=== PATIENT | male | born 1935 | race Caucasian/White ===

== ENCOUNTER 2021-08-10 12:30 | Inpatient (IN) ==
--- NOTE | 2021-08-10 12:55 | Emergency Department Note ---
Impression & Plan Pneumothorax, SOB (shortness of breath) ED Provider Note NAME: FER VILLARREAL AGE: 86 SEX: M : 1935 ARRIVES VIA: Walk-In INFORMANT: Patient, ED PROVIDER(S): Casper Bates DO CHIEF COMPLAINT: Shortness of breath HPI: The patient is an 86-year-old male who presented to the emergency department for an evaluation of shortness of breath. The patient's been noticing shortness of breath over the last few months. He has been seen by his primary care physician as well as his primary cardiology group. He had a pacemaker placed this week which was supposed to help with his symptoms. He states his symptoms are no better and he continues to have shortness of breath so he presented to the emergency department today for further evaluation. The patient states he is also had some chest pressure. He notices leg swelling but this is not new for him. He denies having any headaches or trauma. He has no back pain. He denies having any abdominal pain or vomiting. He states his symptoms are worsened with exertion and relieved somewhat with rest. ROS: See above HPI for pertinent positives & negatives. A total of 10 systems reviewed and were otherwise negative. PAST MEDICAL HISTORY: See Below PAST SURGICAL HISTORY: See Below FAMILY HISTORY: See Below SOCIAL HISTORY: See Below HOME MEDICATIONS: See Below ALLERGIES: See Below VITALS: See Below PHYSICAL EXAMINATION: GENERAL: Patient is awake alert in no acute distress patient is resting comfortably and showing no signs of anxiety EYES: The conjunctivae are clear. The pupils are round and reactive. EARS, NOSE, MOUTH AND THROAT: The nose is without any evidence of any deformity. Mucous membranes are moist. Tongue is midline. NECK: The neck is nontender and supple. RESPIRATORY: Diminished breath sounds are noted in the left lung field. There is mild tachypnea and conversational dyspnea. CARDIOVASCULAR: Tachycardic and irregular heart sounds were noted auscultation. No definite murmur could be heard to auscultation. GASTROINTESTINAL: The abdomen is soft. Abdomen is nontender. MUSCULOSKELETAL/EXTREMITIES: There is no evidence of gross deformity full range of motion is noted in the hips and shoulders. SKIN: Skin is warm and dry. Pedal edema was noted bilaterally. NEUROLOGIC: Patient is awake alert and oriented x3. MEDICAL DECISION MAKING: The patient is an 86-year-old male who presented to the emergency department for an evaluation of shortness of breath. The patient recently had a pacemaker placed earlier in the week. He started having worsening shortness of breath. He had diminished breath sounds in the left lung field. X-ray revealed pneumothorax. I discussed the patient's condition with the on-call general surgeon. A chest tube was placed. I also discussed his case with the on-call [facility] hospitalist. They have agreed to evaluate the patient in the emergency department for further inpatient management. The patient was feeling much better on subsequent reevaluation. X-ray was obtained after procedure and improvement of the pneumothorax. Triage Nursing notes reviewed. Prior medical records reviewed Vital Signs: reviewed and remarkable for elevated blood pressure. Differential diagnosis: Reactive airway disease, pneumonia, pneumothorax, COPD, CHF, infections, cardiac ischemia, pulmonary embolism, musculoskeletal, gastrointestinal, as well as other pathologies. ER treatment provided: See below Diagnostics interpreted by me: ECG: EKG was obtained in the emergency department. My interpretation is atrial fibrillation at 125 bpm. Paced beats were noted. Some pacer spikes fell onto the QRS complex. This was compared to a tracing from August 07, 2021. The pacer spikes appear to have changed otherwise no other QRS changes were noted. Cardiac Monitoring: An order was placed for continuous cardiac monitoring. The monitor shows a rate of 99 bpm with atrial fibrillation with paced beats were noted. Laboratory studies: As stated above and show below. Imaging studies: See below Consultation(s): I discussed this case with Dr. Espinal who is on-call for general surgery. I discussed this case with Dr. [facility] Past Med/Surg History Medical History Atrial fibrillation reason for upcoming ICD implant. CAD (coronary artery disease) s/p PCIs to RCA x 2 and LAD x 3, "CABG in 2003 [facility]GUE[facility], SVG-D2, SVG-Y [facility] Congestive heart failure EF 25-30% per [facility] records Gout Hyperlipidemia Hypertension Kidney stones Mitral regurgitation moderate Myocardial Infarction On anticoagulant therapy Osteoarthritis Tricuspid regurgitation moderate Surgical History History of arthroscopy Left knee arthroscopy History of cardiac cath x3 (last done about ~2001) [place], [place] History of cataract surgery bilateral History of colonoscopy History of coronary artery bypass graft x2 or x3 vessels at [facility] (~2014) History of heart artery stent total of x3 or 4 stents. History of herniorrhaphy inguinal hernia repair History of lithotripsy History of removal of calculus of renal pelvis through percutaneous nephrostomy Family History Other No family history of adverse response to anesthesia No significant family history Social History Smoking Status: Never smoker Second Hand Exposure: No; Hx Alcohol Use: Yes Alcohol type: wine Hx Substance Use: No Preferred Language: Latvian Communication Ability: Effective Clinical Assoc Required: No Beliefs That Will Affect Care: None Current Living Situation: Spouse Current Living Situation Comment: LIVES WITH current occupational status: retired Other Information That Helps Us Care for You: No Feels Safe at Home: Yes Safety Concerns: Feels Safe At This Time Assistive Devices: Denture - Upper, Denture - Lower and Glasses Allergies Allergies Allergy/AdvReac Type Severity Reaction Status Date / Time No Known Allergies Allergy Verified 08/05/21 13:39 Home Meds Home Medications Medication Instructions Recorded Confirmed acetylcarnitine 500 mg capsule 1,000 mg PO QPM 08/05/21 08/10/21 allopurinol 100 mg tablet 100 mg PO QAM 08/05/21 08/10/21 atorvastatin 80 mg tablet 80 mg PO QAM 08/05/21 08/10/21 eplerenone 25 mg tablet (Inspra) 25 mg PO QAM 08/05/21 08/10/21 ezetimibe 10 mg tablet 10 mg PO QAM 08/05/21 08/10/21 furosemide 40 mg tablet (Lasix) 20 mg PO QPM 08/05/21 08/10/21 furosemide 40 mg tablet (Lasix) 40 mg PO QAM 08/05/21 08/10/21 sacubitril 97 mg-valsartan 103 mg 1 tab PO BID 08/05/21 08/10/21 tablet (Entresto) vitamins A,C,C-btag-dkyorg 14,320 1 cap PO QAM 08/05/21 08/10/21 unit-226 mg-200 unit capsule (PreserVision AREDS) warfarin 5 mg tablet 5 - 7.5 mg PO UD 08/05/21 08/10/21 digoxin 125 mcg (0.125 mg) tablet 62.5 mcg PO QPM 08/10/21 08/10/21 Previous Rx's Medication Instructions Recorded metoprolol succinate 50 mg 100 mg PO BID #0 tab 08/07/21 tablet,extended release 24 hr (Toprol XL) Results & Data (ED) Vital Signs Vital Signs - 24 hr 08/10/21 12:34 08/10/21 12:38 08/10/21 12:48 Temperature 36.6 C Temperature Source Temporal Artery Scan Pulse Rate 115 H 105 H Pulse Rate [Apical] 113 H Pulse Rate from SpO2 Sensor Pulse Rhythm [Apical] Regular Pulse Strength [Apical] Normal Respiratory Rate 20 16 14 Respiratory Effort / Characteristics Non-Labored Spontaneous Non-Labored Respiratory Depth Normal Normal Respiratory Pattern Regular Regular Blood Pressure Blood Pressure [Right Arm] 112/95 Blood Pressure Mean Blood Pressure Mean [Right Arm] 100 Blood Pressure Position Sitting Pulse Oximetry 94 94 Oxygen Delivery Method Room Air Room Air Oxygen Flow Rate Sepsis Recent Fever Within 48 Hours No Sepsis New/Unexplained Change in Mental Status No Sepsis Action Taken by Nursing No Action Required Oxygen Flow Rate - Titration Pulse Oximetry Post Tiitration 08/10/21 12:50 08/10/21 13:00 08/10/21 13:10 Temperature Temperature Source Pulse Rate 106 H 109 H 105 H Pulse Rate [Apical] Pulse Rate from SpO2 Sensor 93 H 104 H 93 H Pulse Rhythm [Apical] Pulse Strength [Apical] Respiratory Rate 22 19 18 Respiratory Effort / Characteristics Respiratory Depth Respiratory Pattern Blood Pressure 136/99 Blood Pressure [Right Arm] Blood Pressure Mean 111 Blood Pressure Mean [Right Arm] Blood Pressure Position Pulse Oximetry 93 94 94 Oxygen Delivery Method Oxygen Flow Rate Sepsis Recent Fever Within 48 Hours Sepsis New/Unexplained Change in Mental Status Sepsis Action Taken by Nursing Oxygen Flow Rate - Titration Pulse Oximetry Post Tiitration 08/10/21 13:20 08/10/21 13:30 08/10/21 13:40 Temperature Temperature Source Pulse Rate 108 H 102 H 114 H Pulse Rate [Apical] Pulse Rate from SpO2 Sensor 102 H 97 H 94 H Pulse Rhythm [Apical] Pulse Strength [Apical] Respiratory Rate 20 Respiratory Effort / Characteristics Respiratory Depth Respiratory Pattern Blood Pressure Blood Pressure [Right Arm] Blood Pressure Mean Blood Pressure Mean [Right Arm] Blood Pressure Position Pulse Oximetry 94 94 98 Oxygen Delivery Method Oxygen Flow Rate Sepsis Recent Fever Within 48 Hours Sepsis New/Unexplained Change in Mental Status Sepsis Action Taken by Nursing Oxygen Flow Rate - Titration Pulse Oximetry Post Tiitration 08/10/21 13:50 08/10/21 14:00 08/10/21 14:10 Temperature Temperature Source Pulse Rate 108 H 112 H 106 H Pulse Rate [Apical] Pulse Rate from SpO2 Sensor 105 H 100 H 98 H Pulse Rhythm [Apical] Pulse Strength [Apical] Respiratory Rate 16 21 20 Respiratory Effort / Characteristics Respiratory Depth Respiratory Pattern Blood Pressure 133/88 Blood Pressure [Right Arm] Blood Pressure Mean 103 Blood Pressure Mean [Right Arm] Blood Pressure Position Pulse Oximetry 98 98 98 Oxygen Delivery Method Room Air Oxymask Oxygen Flow Rate 0 Sepsis Recent Fever Within 48 Hours Sepsis New/Unexplained Change in Mental Status Sepsis Action Taken by Nursing Oxygen Flow Rate - Titration 4 Pulse Oximetry Post Tiitration 98 08/10/21 14:20 08/10/21 14:30 08/10/21 14:40 Temperature Temperature Source Pulse Rate 107 H 94 H 92 H Pulse Rate [Apical] Pulse Rate from SpO2 Sensor 102 H 90 90 Pulse Rhythm [Apical] Pulse Strength [Apical] Respiratory Rate 22 24 23 Respiratory Effort / Characteristics Respiratory Depth Respiratory Pattern Blood Pressure Blood Pressure [Right Arm] Blood Pressure Mean Blood Pressure Mean [Right Arm] Blood Pressure Position Pulse Oximetry 98 98 98 Oxygen Delivery Method Oxygen Flow Rate Sepsis Recent Fever Within 48 Hours Sepsis New/Unexplained Change in Mental Status Sepsis Action Taken by Nursing Oxygen Flow Rate - Titration Pulse Oximetry Post Tiitration 08/10/21 14:50 08/10/21 15:00 08/10/21 15:10 Temperature Temperature Source Pulse Rate 92 H 87 82 Pulse Rate [Apical] Pulse Rate from SpO2 Sensor 94 H 86 82 Pulse Rhythm [Apical] Pulse Strength [Apical] Respiratory Rate 30 H 26 H 18 Respiratory Effort / Characteristics Respiratory Depth Respiratory Pattern Blood Pressure 144/99 H Blood Pressure [Right Arm] Blood Pressure Mean 114 Blood Pressure Mean [Right Arm] Blood Pressure Position Pulse Oximetry 98 91 99 Oxygen Delivery Method Oxygen Flow Rate Sepsis Recent Fever Within 48 Hours Sepsis New/Unexplained Change in Mental Status Sepsis Action Taken by Nursing Oxygen Flow Rate - Titration Pulse Oximetry Post Tiitration 08/10/21 15:20 08/10/21 15:30 08/10/21 15:40 Temperature Temperature Source Pulse Rate 97 H 88 96 H Pulse Rate [Apical] Pulse Rate from SpO2 Sensor 93 H 90 96 H Pulse Rhythm [Apical] Pulse Strength [Apical] Respiratory Rate 21 18 18 Respiratory Effort / Characteristics Respiratory Depth Respiratory Pattern Blood Pressure Blood Pressure [Right Arm] Blood Pressure Mean Blood Pressure Mean [Right Arm] Blood Pressure Position Pulse Oximetry 99 99 99 Oxygen Delivery Method Oxygen Flow Rate Sepsis Recent Fever Within 48 Hours Sepsis New/Unexplained Change in Mental Status Sepsis Action Taken by Nursing Oxygen Flow Rate - Titration Pulse Oximetry Post Tiitration Home Medications Current Medication List: was personally reviewed by me Laboratory Data Attestation: I reviewed the patient's lab results. Result diagrams: 08/10/21 12:50 08/10/21 12:50 Lab Results 08/10/21 08/10/21 08/10/21 Range/Units 12:50 12:50 12:50 WBC 8.80 (4.8-10.8) K/uL RBC 4.58 L (4.7-6.1) M/uL Hgb 14.5 (14.0-18.0) g/dL Hct 45.4 (42-52) % MCV 99.1 (80-100) fL MCH 31.7 (25-34) pg MCHC 31.9 L (32-36) g/dL RDW Std Deviation 56.2 H (36.4-46.3) fL RDW Coeff of Everardo 15.4 H (11.5-14.5) % Plt Count 197 (130-400) K/uL MPV 10.2 (7.4-10.4) fL Immature Gran % (Auto) 0.1 % Neut % (Auto) 72.6 % Lymph % (Auto) 15.5 % [place] % (Auto) 9.7 % Eos % (Auto) 1.6 % Baso % (Auto) 0.5 % Neut # (Auto) 6.40 (1.4-6.5) K/uL Lymph # (Auto) 1.36 (1.2-3.4) K/uL [place] # (Auto) 0.85 H (0.11-0.59) K/uL Eos # (Auto) 0.14 (0-0.5) K/uL Baso # (Auto) 0.04 (0-0.2) K/uL Immature Gran # (Auto) 0.01 (0.00-0.02) K/uL PT 18.6 H (9.0-12.0) Seconds INR 1.8 H (0.9-1.1) APTT 33.8 H (21.0-31.0) Seconds PTT Ratio 1.2 VBG pH (7.36-7.41) VBG pCO2 (38-50) mmHg VBG pO2 mmHg VBG HCO3 mmol/L VBG O2 Saturation % VBG Base Excess mEq/L Barometric Pressure mm/Hg Sodium (136-145) mmol/L Potassium (3.5-5.1) mmol/L Chloride (98-107) mmol/L Carbon Dioxide (21-32) mmol/L Anion Gap (3-11) BUN (6-23) mg/dl Creatinine (0.6-1.4) mg/dl Est Cr Clr Drug Dosing ml/min Est GFR ( Amer) ml/min Est GFR (Non-Af Amer) ml/min BUN/Creatinine Ratio (10-20) Glucose (70-99(Fasting)) mg/dl Calcium (8.5-10.1) mg/dl Magnesium (1.7-2.4) mg/dl Total Bilirubin (0.2-1.0) mg/dl AST (13-39) U/L ALT (7-52) U/L Alkaline Phosphatase (34-104) U/L Troponin I High Sens 16.9 (0-20) pg/ml B-Natriuretic Peptide (0-100) pg/ml Total Protein (6.0-8.3) gm/dl Albumin (3.4-5.0) gm/dl Globulin (2.5-4.0) gm/dl Albumin/Globulin Ratio (0.9-2) SARS-CoV-2, RNA, NAAT (NEGATIVE) 08/10/21 08/10/21 08/10/21 Range/Units 12:50 12:50 13:10 WBC (4.8-10.8) K/uL RBC (4.7-6.1) M/uL Hgb (14.0-18.0) g/dL Hct (42-52) % MCV (80-100) fL MCH (25-34) pg MCHC (32-36) g/dL RDW Std Deviation (36.4-46.3) fL RDW Coeff of Everardo (11.5-14.5) % Plt Count (130-400) K/uL MPV (7.4-10.4) fL Immature Gran % (Auto) % Neut % (Auto) % Lymph % (Auto) % [place] % (Auto) % Eos % (Auto) % Baso % (Auto) % Neut # (Auto) (1.4-6.5) K/uL Lymph # (Auto) (1.2-3.4) K/uL [place] # (Auto) (0.11-0.59) K/uL Eos # (Auto) (0-0.5) K/uL Baso # (Auto) (0-0.2) K/uL Immature Gran # (Auto) (0.00-0.02) K/uL PT (9.0-12.0) Seconds INR (0.9-1.1) APTT (21.0-31.0) Seconds PTT Ratio VBG pH 7.41 (7.36-7.41) VBG pCO2 42 (38-50) mmHg VBG pO2 53 mmHg VBG HCO3 27 mmol/L VBG O2 Saturation 86.5 % VBG Base Excess 1.6 mEq/L Barometric Pressure 734.8 mm/Hg Sodium 139 (136-145) mmol/L Potassium 4.0 (3.5-5.1) mmol/L Chloride 105 (98-107) mmol/L Carbon Dioxide 26 (21-32) mmol/L Anion Gap 8 (3-11) BUN 24 H (6-23) mg/dl Creatinine 1.02 (0.6-1.4) mg/dl Est Cr Clr Drug Dosing 66.5 ml/min Est GFR ( Amer) 77.3 ml/min Est GFR (Non-Af Amer) 66.7 ml/min BUN/Creatinine Ratio 23.5 H (10-20) Glucose 124 H (70-99(Fasting)) mg/dl Calcium 9.2 (8.5-10.1) mg/dl Magnesium 1.8 (1.7-2.4) mg/dl Total Bilirubin 1.2 H (0.2-1.0) mg/dl AST 22 (13-39) U/L ALT 19 (7-52) U/L Alkaline Phosphatase 52 (34-104) U/L Troponin I High Sens (0-20) pg/ml B-Natriuretic Peptide 583 H (0-100) pg/ml Total Protein 6.9 (6.0-8.3) gm/dl Albumin 4.4 (3.4-5.0) gm/dl Globulin 2.5 (2.5-4.0) gm/dl Albumin/Globulin Ratio 1.8 (0.9-2) SARS-CoV-2, RNA, NAAT (NEGATIVE) 08/10/21 Range/Units 14:00 WBC (4.8-10.8) K/uL RBC (4.7-6.1) M/uL Hgb (14.0-18.0) g/dL Hct (42-52) % MCV (80-100) fL MCH (25-34) pg MCHC (32-36) g/dL RDW Std Deviation (36.4-46.3) fL RDW Coeff of Everardo (11.5-14.5) % Plt Count (130-400) K/uL MPV (7.4-10.4) fL Immature Gran % (Auto) % Neut % (Auto) % Lymph % (Auto) % [place] % (Auto) % Eos % (Auto) % Baso % (Auto) % Neut # (Auto) (1.4-6.5) K/uL Lymph # (Auto) (1.2-3.4) K/uL [place] # (Auto) (0.11-0.59) K/uL Eos # (Auto) (0-0.5) K/uL Baso # (Auto) (0-0.2) K/uL Immature Gran # (Auto) (0.00-0.02) K/uL PT (9.0-12.0) Seconds INR (0.9-1.1) APTT (21.0-31.0) Seconds PTT Ratio VBG pH (7.36-7.41) VBG pCO2 (38-50) mmHg VBG pO2 mmHg VBG HCO3 mmol/L VBG O2 Saturation % VBG Base Excess mEq/L Barometric Pressure mm/Hg Sodium (136-145) mmol/L Potassium (3.5-5.1) mmol/L Chloride (98-107) mmol/L Carbon Dioxide (21-32) mmol/L Anion Gap (3-11) BUN (6-23) mg/dl Creatinine (0.6-1.4) mg/dl Est Cr Clr Drug Dosing ml/min Est GFR ( Amer) ml/min Est GFR (Non-Af Amer) ml/min BUN/Creatinine Ratio (10-20) Glucose (70-99(Fasting)) mg/dl Calcium (8.5-10.1) mg/dl Magnesium (1.7-2.4) mg/dl Total Bilirubin (0.2-1.0) mg/dl AST (13-39) U/L ALT (7-52) U/L Alkaline Phosphatase (34-104) U/L Troponin I High Sens (0-20) pg/ml B-Natriuretic Peptide (0-100) pg/ml Total Protein (6.0-8.3) gm/dl Albumin (3.4-5.0) gm/dl Globulin (2.5-4.0) gm/dl Albumin/Globulin Ratio (0.9-2) SARS-CoV-2, RNA, NAAT NEGATIVE (NEGATIVE) Administered Medications Furosemide (Furosemide 20 Mg Tab) 20 mg PO DAILY@1700 MINO Stop: 09/09/21 16:59 Last Admin: 08/10/21 18:11 Dose: 20 mg Documented by: [id number] Discontinued Medications Lidocaine/Epinephrine (Lido/Epinephrine/Sod Bicarb 20 Ml Vial) Confirm Administered Dose 20 ml .ROUTE .[employer] ONE Stop: 08/10/21 14:21 Last Admin: 08/10/21 14:53 Dose: 20 ml Documented by: [id number] Imaging Data Radiologist's Impression: Chest X-Ray 08/10/21 12:42 XR chest 1V portable HISTORY: 86 years-old Male Dyspnea acute shortness of breath COMPARISON: 08/07/2021 TECHNIQUE: AP view of the chest FINDINGS: Cardiomegaly with prior median sternotomy. Left subclavian pacer/AICD. There is a large left-sided pneumothorax. No large pleural effusion, airspace consolidation or overt pulmonary edema. Possible slight rightward deviation of the mediastinal structures. Subcutaneous emphysema within the left supraclavicular tissues. The bones appear grossly intact. IMPRESSION: Large left-sided pneumothorax with possible developing tension component. Chest tube placement recommended. ACT 112: Negative or not required by law. The above report was generated using voice recognition software. It may contain grammatical, syntax or spelling errors. Electronically signed by: Andrei Rodríguez M.D. 08/10/2021 1:15 PM Chest X-Ray 08/10/21 14:46 XR chest 1V portable HISTORY: 86 years-old Male post chest tube left-sided pneumothorax COMPARISON: Chest radiograph of same day at 08/10/2021 TECHNIQUE: AP view of the chest FINDINGS: Status post placement of a left-sided chest tube with distal tip projected superiorly projecting over the aortic arch. Left subclavian pacer/AICD. Cardiomegaly with prior median sternotomy and CABG. Bones appear grossly intact. There is reexpansion of the left lung with small residual hydropneumothorax. Left apical pneumothorax component is noted with pleural separation of 2 cm. Mild left basilar opacities. Mild asymmetric interstitial coarsening of the left lung. Subcutaneous emphysema of the left supraclavicular tissues and left lateral chest wall. IMPRESSION: 1. Status post placement of a left-sided chest tube. There is reexpansion of the left lung with small residual hydropneumothorax. 2. Mild interstitial opacities throughout the left lung may represent asymmetric pulmonary edema. 3. Subcutaneous emphysema of the left supraclavicular tissues and left chest wall. ACT 112: Negative or not required by law. The above report was generated using voice recognition software. It may contain grammatical, syntax or spelling errors. Electronically signed by: Andrei Rodríguez M.D. 08/10/2021 3:08 PM Discharge Plan Visit Data Chief Complaint: Shortness of Breath/Dyspnea Stated Complaint: GOT PACEMAKER WED, SOB AFTER SURGERY ED Provider: Casper Bates Discharge Problem: Pneumothorax, SOB (shortness of breath) Patient Disposition: Admitted As Inpatient Discharge Instructions Interventions: ED Discharge Assessment Last Done: 08/10/21 16:37 Discharge Problem: Pneumothorax Qualifiers: Pneumothorax type: unspecified pneumothorax Qualified Code(s): J93.9 - Pn eumothorax, unspecified
[2021-08-10 13:00] LABS: Basophils # (auto) 0.04 K/uL (0-0.2); Basophils % (auto) 0.5 %; Eosinophils # (auto) 0.14 K/uL (0-0.5); Eosinophils % (auto) 1.6 %; Hematocrit (blood only) 45.4 % (42-52); Hemoglobin 14.5 g/dL (14.0-18.0); Immature Granulocytes # (auto) 0.01 K/uL (0.00-0.02); Immature Granulocytes % (auto) 0.1 %; Lymphocytes # (auto) 1.36 K/uL (1.2-3.4); Lymphocytes % (auto) 15.5 %; Mean Corpuscular Hemoglobin 31.7 pg (25-34); Mean Corpuscular Hgb Conc 31.9 g/dL (32-36); Mean Corpuscular Volume 99.1 fL (80-100); Mean Platelet Volume 10.2 fL (7.4-10.4); Monocytes # (auto) 0.85 K/uL (0.11-0.59); Monocytes % (auto) 9.7 %; Neutrophils % (auto) 72.6 %; Platelet Count 197 K/uL (130-400); RDW Coefficient of Variation 15.4 % (11.5-14.5); RDW Standard Deviation 56.2 fL (36.4-46.3); Red Blood Count 4.58 M/uL (4.7-6.1)
[2021-08-10 13:13] LABS: INR 1.8 (0.9-1.1); Partial Thromboplastin Ratio 1.2; Partial Thromboplastin Time 33.8 Seconds (21.0-31.0); Prothrombin Time 18.6 Seconds (9.0-12.0)
--- NOTE | 2021-08-10 13:17 | XRay Report ---
XR chest 1V portable HISTORY: 86 years-old Male Dyspnea acute shortness of breath COMPARISON: 08/07/2021 TECHNIQUE: AP view of the chest FINDINGS: Cardiomegaly with prior median sternotomy. Left subclavian pacer/AICD. There is a large left-sided pn eumothorax. No large pleural effusion, airspace consolidation or overt pulmonary edema. Possible slig ht rightward deviation of the mediastinal structures. Subcutaneous emphysema within the left supracla vicular tissues. The bones appear grossly intact. IMPRESSION: Large left-sided pneumothorax with possible developing tension component. Chest tube plac ement recommended. ACT 112: Negative or not required by law. The above report was generated using voice recognition software. It may contain grammatical, syntax o r spelling errors. Electronically signed by: Andrei Rodríguez M.D. 08/10/2021 1:15 PM
[2021-08-10 13:26] LABS: Base Excess VBG 1.6 mEq/L; Oxygen Saturation VBG 86.5 %; pH VBG 7.41 (7.36-7.41)
[2021-08-10 13:28] LABS: Albumin Globulin Ratio 1.8 (0.9-2); Albumin Level 4.4 gm/dl (3.4-5.0); BUN Creatinine Ratio 23.5 (10-20); Bilirubin,Total 1.2 mg/dl (0.2-1.0); Calcium 9.2 mg/dl (8.5-10.1); Creatinine Clr Calc Pharmacy 66.5 ml/min; Est GFR (African American) 77.3 ml/min; Est GFR (Non-African American) 66.7 ml/min; Globulin 2.5 gm/dl (2.5-4.0); Magnesium 1.8 mg/dl (1.7-2.4); Total Protein 6.9 gm/dl (6.0-8.3)
[2021-08-10] MEDS ORDERED: LIDO/EPINEPHRINE/SOD BICARB 20 ML VIAL ONE (14:20)
--- NOTE | 2021-08-10 15:01 | Surgery Consultation ---
Date of Consultation August 10, 2021 Assessment & Plan (1) Pneumothorax, left: Patient's chest x-ray images were reviewed by me, he has a large left pneumothorax Left chest tube placed at the bedside, awaiting post insertion chest x-ray Due to the urgency of the situation no written consent was obtained but the patient did verbally agree to the procedure We will leave the chest tube to wall suction for 48 hours Will repeat chest x-ray tomorrow morning History of Present Illness Reason for Consultation: Left-sided pneumothorax History of Present Illness This is an 86-year-old male who came to the emergency department earlier today for worsening shortness of breath. He had a pacemaker placed by cardiology 3 days ago and has developed worsening dyspnea since that time. Chest x-ray revealed a large left-sided pneumothorax and I was consulted for chest tube placement. The patient denies any chest pain, previous chest tube placement or thoracic surgeries, any primary lung issues. He does take Coumadin for history of atrial fibrillation. He states that the current moment he is a little short of breath but otherwise feels okay. Allergies Allergy/AdvReac Type Severity Reaction Status Date / Time No Known Allergies Allergy Verified 08/05/21 13:39 Home Medications Medication Instructions Recorded Confirmed Type aspirin 81 mg tablet,delayed 81 mg PO QPM 03/04/18 08/05/21 History release acetylcarnitine 500 mg capsule 1,000 mg PO QPM 08/05/21 08/05/21 History allopurinol 100 mg tablet 100 mg PO QAM 08/05/21 08/05/21 History atorvastatin 80 mg tablet 80 mg PO QAM 08/05/21 08/05/21 History eplerenone 25 mg tablet (Inspra) 25 mg PO QAM 08/05/21 08/05/21 History ezetimibe 10 mg tablet 10 mg PO QAM 08/05/21 08/05/21 History furosemide 40 mg tablet (Lasix) 20 mg PO QPM 08/05/21 08/05/21 History furosemide 40 mg tablet (Lasix) 40 mg PO QAM 08/05/21 08/05/21 History sacubitril 97 mg-valsartan 103 mg 1 tab PO BID 08/05/21 08/05/21 History tablet (Entresto) vitamins A,C,Z-eamg-basnqt 14,320 1 cap PO QAM 08/05/21 08/05/21 History unit-226 mg-200 unit capsule (PreserVision AREDS) warfarin 5 mg tablet 5 - 7.5 mg PO UD 08/05/21 08/05/21 History metoprolol succinate 50 mg 100 mg PO BID #0 tab 08/07/21 08/05/21 Rx tablet,extended release 24 hr (Toprol XL) Patient History Medical History Atrial fibrillation reason for upcoming ICD implant. CAD (coronary artery disease) s/p PCIs to RCA x 2 and LAD x 3, "CABG in 2003 RODRÍGUEZ-LAD, SVG-D2, SVG-Y graft to anterior branch occluded by caht in 06/2019" [facility] Congestive heart failure EF 25-30% per [facility] records Gout Hyperlipidemia Hypertension Kidney stones Mitral regurgitation moderate Myocardial Infarction On anticoagulant therapy Osteoarthritis Tricuspid regurgitation moderate Surgical History History of arthroscopy Left knee arthroscopy History of cardiac cath x3 (last done about ~2001) [place], [place] History of cataract surgery bilateral History of colonoscopy History of coronary artery bypass graft x2 or x3 vessels at [facility] (~2014) History of heart artery stent total of x3 or 4 stents. History of herniorrhaphy inguinal hernia repair History of lithotripsy History of removal of calculus of renal pelvis through percutaneous nephrostomy Family History Other No family history of adverse response to anesthesia No significant family history Social History Smoking Status: Never smoker Second Hand Exposure: No; Hx Alcohol Use: Yes Alcohol type: wine Hx Substance Use: No Preferred Language: Kyrgyz Communication Ability: Effective Cloth Measurer Machine Required: No Beliefs That Will Affect Care: None Current Living Situation: Alone current occupational status: retired Feels Safe at Home: Yes Assistive Devices: Denture - Upper, Denture - Lower and Glasses Review of Systems Constitutional: no fever and no chills Eyes: no blind spots and no worsening vision Ear, Nose, Mouth, Throat: no ear pain and no hearing loss Respiratory: + dyspnea and + dyspnea on exertion; no cough Cardiovascular: no chest pain Gastrointestinal: no abdominal pain Genitourinary: no dysuria Musculoskeletal: no back pain and no neck pain Integumentary: no rash and no skin ulcer Neurologic: no gait abnormality and no headache(s) Psychiatric: no behavioral changes and no depression Hematologic / Lymphatic: + easy bleeding; no easy bruising Positive on warfarin for atrial fibrillation Physical Exam Constitutional: WD/WN, vitals as above Eyes: PERRL, conjunctivae normal, anicteric sclerae ENMT: external ear and nose normal, oropharynx normal Neck: trachea midline, no thyromegaly Respiratory: + respiratory distress and + labored breathing Decreased breath sounds in the left Cardiovascular: Rate/Rhythm: + irregularly irregular Chest (Breasts): Additional Comments: Pacemaker incision with Dermabond and surrounding ecchymosis, no signs of infection or drainage Mild chest wall ecchymosis on the left Gastrointestinal (Abdomen): normal bowel sounds, soft, nontender, no hepatosplenomegaly Musculoskeletal: no cyanosis or clubbing, extremities motor strength 5/5 Skin: no rashes, warm and dry Neurologic: PERRL, EOMI, accommodation nl, no face palsy, no dysarthria Psychiatric: A+Ox3, euthymic affect Results & Data ([facility]) Vital Signs (Past 12 Hours) Vital Signs Temp Pulse Pulse Resp BP BP Pulse Ox 08/10/21 14:50 92 H 30 H 98 08/10/21 14:40 92 H 23 98 08/10/21 14:30 94 H 24 98 08/10/21 14:20 107 H 22 98 08/10/21 14:10 106 H 20 98 08/10/21 14:00 112 H 21 133/88 98 08/10/21 13:50 108 H 16 98 08/10/21 13:40 114 H 98 08/10/21 13:30 102 H 94 08/10/21 13:20 108 H 20 94 08/10/21 13:10 105 H 18 94 08/10/21 13:00 109 H 19 136/99 94 08/10/21 12:50 106 H 22 93 08/10/21 12:48 105 H 14 08/10/21 12:38 113 H 16 112/95 94 08/10/21 12:34 36.6 C 115 H 20 94 Diagnostic Findings XR chest 1V portable HISTORY: 86 years-old Male Dyspnea acute shortness of breath COMPARISON: 08/07/2021 TECHNIQUE: AP view of the chest FINDINGS: Cardiomegaly with prior median sternotomy. Left subclavian pacer/AICD. There is a large left-sided pneumothorax. No large pleural effusion, airspace consolidation or overt pulmonary edema. Possible slight rightward deviation of the mediastinal structures. Subcutaneous emphysema within the left supraclavicular tissues. The bones appear grossly intact. IMPRESSION: Large left-sided pneumothorax with possible developing tension component. Chest tube placement recommended. PG Care Time/CCT Total # of Minutes Spent Total Time Spent with Patient: Total time spent is greater than 50% in coordination of care (as documented) at patient's floor/unit and/or counseling patient: Coding Level of Care Code 68822 Office/OBS Consult Lvl 5 Diagnoses Pneumothorax, left J93.9
--- NOTE | 2021-08-10 15:07 | Operative Report ---
PG Post Operative Report Pre & Post Diagnosis Left-sided pneumothorax I identified the patient and participated in the time-out.: Yes Procedure Left tube thoracostomy Surgeon Elvis Espinal, DO Braille Typist None Estimated Blood Loss 5 Findings See Below Large kemp of air upon entrance to the left chest Specimens None Drains 20 Serbian chest tube Anesthesia Type Local Complications none Indications 86-year-old male status post pacemaker placement, now with large left-sided pneumothorax Description of Procedure Patient was placed in the supine position with her left arm abducted over her head. The left chest was prepped and draped in the usual sterile fashion. A t imeout was called, procedure was verified as left chest tube placement. Surgical and nursing teams agreed and the procedure was begun. Using the infra- mammary fold as a landmark, the skin was anesthetized between the 4th and 5th rib space as well as the periosteum of the rib itself. An incision was made using an #11 blade scalpel and the subcutaneous tissue was spread using a Mayra clamp. Then the thoracic cavity was entered blunty using a Mayra clamp going just over the 5th rib. A gush of air was noted. Finger sweep was performed and no adhesions were noted. A 20Fr chest tube was then placed aimed toward the apex. The 16cm line was at the skin level. The chest tube was then sutured into place using 0 silk suture and attached to the Pleuravac with wall suction. Vaseline gauze occlusive dressing was applied. The patient tolerated the procedure well and post-procedure X-ray was ordered. I attest to the content of the Intraoperative Record and any orders documented therein. Any exceptions are noted below.
--- NOTE | 2021-08-10 15:10 | XRay Report ---
XR chest 1V portable HISTORY: 86 years-old Male post chest tube left-sided pneumothorax COMPARISON: Chest radiograph of same day at 08/10/2021 TECHNIQUE: AP view of the chest FINDINGS: Status post placement of a left-sided chest tube with distal tip projected superiorly projecting over the aortic arch. Left subclavian pacer/AICD. Cardiomegaly with prior median sternotomy and CABG. Bon es appear grossly intact. There is reexpansion of the left lung with small residual hydropneumothorax . Left apical pneumothorax component is noted with pleural separation of 2 cm. Mild left basilar opac ities. Mild asymmetric interstitial coarsening of the left lung. Subcutaneous emphysema of the left s upraclavicular tissues and left lateral chest wall. IMPRESSION: 1. Status post placement of a left-sided chest tube. There is reexpansion of the left lung with small residual hydropneumothorax. 2. Mild interstitial opacities throughout the left lung may represent asymmetric pulmonary edema. 3. Subcutaneous emphysema of the left supraclavicular tissues and left chest wall. ACT 112: Negative or not required by law. The above report was generated using voice recognition software. It may contain grammatical, syntax o r spelling errors. Electronically signed by: Andrei Rodríguez M.D. 08/10/2021 3:08 PM
[2021-08-10] MEDS ORDERED: ACETAMINOPHEN 325 MG TAB PO PRN (17:13)
[2021-08-10] MEDS: FUROSEMIDE 20 MG TAB PO SCH (18:11)
--- NOTE | 2021-08-10 18:32 | History & Physical Report ---
Date of Service August 10, 2021 Assessment & Plan (1) Pneumothorax, left: Plan: 86-year-old male with history of coronary disease status post stent, CHF ejection fraction 25 to 29%, Atrial fibrillation, status post pacemaker placement August 07, severe mitral regurgitation, hypertension, CKD stage III, etc. presenting with shortness of Breath. Left-sided large hemothorax Status post chest tube placement 08/10/2021 In the setting of pacemaker placement 08/07/2021 Doing well after chest tube placement Repeat chest x-ray showing pneumothorax mostly resolved Hemodynamically stable Hold usual Coumadin for now Pacemaker interrogation performed General surgery following the patient Cardiology service consult Coronary disease status post stent placement Denies chest pain or any other cardiac symptoms Continue aspirin, ezetimibe Chronic systolic CHF Ejection fraction 25 to 20% Euvolemic Continue sacubitril/valsartan, Lasix, digoxin, metoprolol Atrial fibrillation Heart rate controlled Continue metoprolol, eplerenone, digoxin INR 3.0, hold Coumadin for now INR tomorrow Hypertension Mildly elevated Monitor CKD stage III Stable DVT prophylaxis INR 3.0, Coumadin on hold Full code Disposition Anticipate discharge home medically plan of care discussed with patient in detail and at length all questions answered he is understanding, agreeable, comfortable with the plan of care Admission and Anticipated Discharge Date Admission Date: August 10, 2021 History of Present Illness Primary Care Provider: Scotty Cummings PA-C 86-year-old male with history of coronary disease status post stent, CHF ejection fraction 25 to 29%, Atrial fibrillation, status post pacemaker placement August 07, severe mitral regurgitation, hypertension, CKD stage III, etc. presenting with shortness of Breath. Patient status post biventricular pacemaker with ICD last August 07, 2021. Patient reported progressive shortness of breath since pacemaker placement. At the ER, patient was found to have large left-sided pneumothorax. Emergent left chest tube placement performed by general surgery service. Repeat chest x-ray showing significant improvement of the pneumothorax. On exam, patient is hemodynamically stable. On room air. Sitting up in bed, having dinner, comfortable States breathing is much better No chest pain, shortness of breath on exam. No other symptoms Allergies Allergy/AdvReac Type Severity Reaction Status Date / Time No Known Allergies Allergy Verified 08/05/21 13:39 Home Medications Medication Instructions Recorded Confirmed Type acetylcarnitine 500 mg capsule 1,000 mg PO QPM 08/05/21 08/10/21 History allopurinol 100 mg tablet 100 mg PO QAM 08/05/21 08/10/21 History atorvastatin 80 mg tablet 80 mg PO QAM 08/05/21 08/10/21 History eplerenone 25 mg tablet (Inspra) 25 mg PO QAM 08/05/21 08/10/21 History ezetimibe 10 mg tablet 10 mg PO QAM 08/05/21 08/10/21 History furosemide 40 mg tablet (Lasix) 20 mg PO QPM 08/05/21 08/10/21 History furosemide 40 mg tablet (Lasix) 40 mg PO QAM 08/05/21 08/10/21 History sacubitril 97 mg-valsartan 103 mg 1 tab PO BID 08/05/21 08/10/21 History tablet (Entresto) vitamins A,C,R-oknf-lbwwte 14,320 1 cap PO QAM 08/05/21 08/10/21 History unit-226 mg-200 unit capsule (PreserVision AREDS) warfarin 5 mg tablet 5 - 7.5 mg PO UD 08/05/21 08/10/21 History metoprolol succinate 50 mg 100 mg PO BID #0 tab 08/07/21 08/10/21 Rx tablet,extended release 24 hr (Toprol XL) digoxin 125 mcg (0.125 mg) tablet 62.5 mcg PO QPM 08/10/21 08/10/21 History Past Med/Surg History Medical History Atrial fibrillation reason for upcoming ICD implant. CAD (coronary artery disease) s/p PCIs to RCA x 2 and LAD x 3, "CABG in 2003 RODRÍGUEZ-LAD, SVG-D2, SVG-Y graft to anterior branch occluded by caht in 06/2019" [facility] cardio Congestive heart failure EF 25-30% per [facility] cardio records Gout Hyperlipidemia Hypertension Kidney stones Mitral regurgitation moderate Myocardial Infarction On anticoagulant therapy Osteoarthritis Tricuspid regurgitation moderate Surgical History History of arthroscopy Left knee arthroscopy History of cardiac cath x3 (last done about ~2001) [place], [place] History of cataract surgery bilateral History of colonoscopy History of coronary artery bypass graft x2 or x3 vessels at [facility] (~2015) History of heart artery stent total of x3 or 4 stents. History of herniorrhaphy inguinal hernia repair History of lithotripsy History of removal of calculus of renal pelvis through percutaneous nephrostomy Family History Other No family history of adverse response to anesthesia No significant family history Social History Smoking Status: Never smoker Second Hand Exposure: No; Hx Alcohol Use: Yes Alcohol type: wine Hx Substance Use: No Preferred Language: Marshallese Communication Ability: Effective Director Of [employer] Required: No Beliefs That Will Affect Care: None Current Living Situation: Spouse Current Living Situation Comment: LIVES WITH current occupational status: retired Other Information That Helps Us Care for You: No Feels Safe at Home: Yes Safety Concerns: Feels Safe At This Time Assistive Devices: Denture - Upper, Denture - Lower and Glasses Review of Systems Review of Systems: all noted and negative except for above Physical Exam Physical Exam: General- oriented x 3, not in distress, speaks in sentences with no effort or accessory muscle use Head- atraumatic Eyes- PERRL, EOMI, anicteric ENT- oropharynx clear Neck- supple, no JVD, no adenopathy, no thyromegaly; carotids +2/2, no bruits appreciated Lungs- clear to auscultation bilaterally, no rales/wheezes Left-sided chest tube in place Heart- normal rate, regular rhythm; no murmur, no gallop, no rub appreciated Pacemaker site: Incision healing well No erythema/edema/hematoma, no discharge or bleeding next Abdomen- normal bowel sounds, nondistended, soft, nontender, no masses or hepatosplenomegaly Extremities- no pretibial edema, no calf tenderness; peripheral pulses intact Neuro- alert, oriented x 3; CN 2-12 grossly intact; motor 5/5 bilaterally;sensation 100% on all extremities; no other gross focal neurologic deficits Skin- warm & dry Results & Data Results & Data ([facility]) Vital Signs (Past 12 Hours) Vital Signs Temp Pulse Pulse Resp BP BP Pulse Ox 08/10/21 17:48 100 08/10/21 17:38 99 H 08/10/21 17:14 36.7 C 90 20 145/92 H 95 08/10/21 16:37 99 08/10/21 16:30 96 H 16 98 08/10/21 16:20 93 H 26 H 99 08/10/21 16:10 93 H 24 100 08/10/21 16:00 92 H 17 147/102 H 96 08/10/21 15:50 87 23 98 08/10/21 15:40 96 H 18 99 08/10/21 15:30 88 18 99 08/10/21 15:20 97 H 21 99 08/10/21 15:10 82 18 99 08/10/21 15:00 87 26 H 144/99 H 91 08/10/21 14:50 92 H 30 H 98 08/10/21 14:40 92 H 23 98 08/10/21 14:30 94 H 24 98 08/10/21 14:20 107 H 22 98 08/10/21 14:10 106 H 20 98 08/10/21 14:00 112 H 21 133/88 98 08/10/21 13:50 108 H 16 98 08/10/21 13:40 114 H 98 08/10/21 13:30 102 H 94 08/10/21 13:20 108 H 20 94 08/10/21 13:10 105 H 18 94 08/10/21 13:00 109 H 19 136/99 94 08/10/21 12:50 106 H 22 93 08/10/21 12:48 105 H 14 08/10/21 12:38 113 H 16 112/95 94 08/10/21 12:34 36.6 C 115 H 20 94 all noted and reviewed including below Code Status & VTE Plan VTE Prophylaxis Plan VTE Prophylaxis will be ordered: Yes
[2021-08-10 19:25] LABS: Appearance Urine Clear (Clear); Bilirubin Urine Negative (Negative); Blood Urine Negative (Negative); Color Urine Yellow; Glucose Urine UA Negative (Negative); Ketones Urine Negative (Negative); Leukocyte Esterase Urine Negative (Negative); Nitrite Urine Negative (Negative); Protein Urine Negative (Negative); Specific Gravity Urine 1.014 (1.000-1.030); Urobilinogen Urine Negative (Negative)
[2021-08-10] MEDS: VALSARTAN/SACUBITRIL 103/97MG TAB PO SCH (21:00)
[2021-08-10] MEDS ORDERED: ACETYLCARNITINE 500 MG PO SCH (21:00)
[2021-08-10] MEDS: DIGOXIN 0.125 MG TAB PO SCH (21:01)
[2021-08-10] MEDS: METOPROLOL SUCC 50MG EXT REL TAB PO SCH (21:02)
[2021-08-11] MEDS: EPLERENONE: ORDER AWAITING ACTION SCH ×2 (00:08→10:55)
--- NOTE | 2021-08-11 05:28 | Surgery Progress Note ---
Date of Service August 11, 2021 Assessment & Plan (1) Pneumothorax: Plan: Patient had permanent pacemaker placed and suffered a left-sided pneumothorax: Left-sided chest tube has been placed with expansion of lung noted We will continue chest tube to suction at the present time We will check chest x-ray this morning Consideration will be given to placing patient on waterseal if chest x-ray appears acceptable Admission and Anticipated Discharge Date Admission Date: August 10, 2021 Supervising Physician Co-Signing Physician Notes I personally saw and evaluated the patient with Compa Jane PA-C and agree with the assessment and plan. 86-year-old male with left pneumothorax status post left chest tube placement Leave chest tube to wall suction until tomorrow Repeat chest x-ray in a.m., today's chest x-ray without pneumothorax If tomorrow's x-ray continues to look good we will place chest tube on waterseal at that time Subjective Patient notes since chest tube placed his breathing feels improved. He denies any chest pain or shortness of breath at the present time. Physical Exam Physical Exam: Chest tube is in place. No air leak noted. Respiratory: Breath sounds are present bilaterally without rales, rhonchi, wheezing. Results & Data ([facility]) Vital Signs (Past 12 Hours) Vital Signs Temp Pulse Pulse Pulse Resp BP BP 08/11/21 04:17 36.5 C 93 H 18 120/82 08/10/21 23:02 36.8 C 100 H 18 131/86 08/10/21 22:21 92 H 08/10/21 20:56 37 C 89 20 138/102 H 08/10/21 19:48 36.8 C 94 H 18 114/73 08/10/21 17:48 08/10/21 17:38 99 H Pulse Ox 08/11/21 04:17 93 08/10/21 23:02 94 08/10/21 22:21 08/10/21 20:56 92 08/10/21 19:48 94 08/10/21 17:48 100 08/10/21 17:38 PG Care Time/CCT Total # of Minutes Spent Total Time Spent with Patient: Total time spent is greater than 50% in coordination of care (as documented) at patient's floor/unit and/or counseling patient: Coding Level of Care Code 19044 Subseq Hosp Care Lvl 1 Diagnoses Pneumothorax J93.9 Pneumothorax type: unspecified pneumothorax (1) Pneumothorax Pneumothorax type: unspecified pneumothorax Qualified Code(s): J93.9 - Pneumothorax, unspecified
[2021-08-11 07:32] LABS: Basophils # (auto) 0.02 K/uL (0-0.2); Basophils % (auto) 0.3 %; Eosinophils # (auto) 0.13 K/uL (0-0.5); Eosinophils % (auto) 1.8 %; Hematocrit (blood only) 40.7 % (42-52); Hemoglobin 13.1 g/dL (14.0-18.0); Immature Granulocytes # (auto) 0.01 K/uL (0.00-0.02); Immature Granulocytes % (auto) 0.1 %; Lymphocytes # (auto) 1.25 K/uL (1.2-3.4); Lymphocytes % (auto) 17.4 %; Mean Corpuscular Hemoglobin 30.9 pg (25-34); Mean Corpuscular Hgb Conc 32.2 g/dL (32-36); Mean Platelet Volume 9.7 fL (7.4-10.4); Monocytes # (auto) 0.69 K/uL (0.11-0.59); Monocytes % (auto) 9.6 %; Neutrophils # (auto) 5.09 K/uL (1.4-6.5); Neutrophils % (auto) 70.8 %; Platelet Count 157 K/uL (130-400); RDW Standard Deviation 52.2 fL (36.4-46.3); Red Blood Count 4.24 M/uL (4.7-6.1); White Blood Count 7.19 K/uL (4.8-10.8)
[2021-08-11 07:44] LABS: INR 1.8 (0.9-1.1); Prothrombin Time 18.6 Seconds (9.0-12.0)
--- NOTE | 2021-08-11 08:00 | XRay Report ---
SINGLE VIEW CHEST CLINICAL HISTORY: Follow-up pneumothorax. FINDINGS: An AP, portable, upright chest radiograph is compared to study dated 08/10/2021. The patient is status post midline sternotomy. A 2-lead cardiac AICD is unchanged in position and partially obsc ures the left mid chest. The enlarged noting atherosclerotic calcification of the thoracic aorta. The pulmonary vasculature is noncongested. A left-sided chest tube is unchanged in position. Airspace op acities are noted in the left lower lung. There is trace left pleural effusion. No residual pneumotho rax is clearly seen. The skeletal structures are osteopenic. The bony thorax is grossly intact. Subcu taneous gas is seen throughout the left chest wall. IMPRESSION: 1. A left-sided chest tube is unchanged in position. No residual pneumothorax is clearly identified. 2. Subcutaneous gas is again seen throughout the left chest wall. 3. Airspace opacities in the left mid to lower lung may represent reexpansion edema. 4. Trace left pleural effusion. 5. Cardiomegaly and AICD with no radiographic evidence of congestive failure. ACT 112: Negative or not required by law. Electronically signed by: Dewayne Edwards M.D. 08/11/2021 7:57 AM
[2021-08-11 08:08] LABS: BUN Creatinine Ratio 28.2 (10-20); Calcium 8.6 mg/dl (8.5-10.1); Creatinine Clr Calc Pharmacy 87.6 ml/min; Est GFR (African American) 95.4 ml/min; Est GFR (Non-African American) 82.3 ml/min; Potassium 3.8 mmol/L (3.5-5.1)
[2021-08-11] MEDS: METOPROLOL SUCC 50MG EXT REL TAB PO SCH ×2 (09:05→19:41)
[2021-08-11] MEDS: VALSARTAN/SACUBITRIL 103/97MG TAB PO SCH ×2 (09:06→19:41)
[2021-08-11] MEDS: allopurinoL 100 MG TAB PO SCH (09:06)
[2021-08-11] MEDS: EZETIMIBE 10 MG TABLET PO SCH (09:06)
[2021-08-11] MEDS: ATORVASTATIN 40 MG TAB PO SCH (09:06)
[2021-08-11] MEDS: FUROSEMIDE 40 MG TAB PO SCH (10:55)
--- NOTE | 2021-08-11 11:53 | Cardiology Consultation ---
Date of Consultation August 11, 2021 Assessment & Plan (1) Pneumothorax, left: (2) Ischemic cardiomyopathy: (3) Permanent atrial fibrillation: Patient is an 86-year-old male who underwent pacer defibrillator implantation on 08/08/2027 presents now with large left pneumothorax. Patient is undergone emergent chest thoracostomy with reexpansion of the lung. Pacer defibrillator functioning appropriately Hemodynamically stable and currently oxygenating well on room air Usual medications resumed. We will add eplerenone not initially prescribed on admission Watch closely for signs of ischemia or worsening congestive heart failure. May need additional dose of diuretic in a.m. Cardiology will follow History of Present Illness Reason for Consultation: Pneumothorax post pacemaker insertion Requesting Physician: Jung Laguerre MD Attending Physician: Jung Laguerre MD History of Present Illness Patient is a an 86-year-old male referred for evaluation after presenting with large pneumothorax status post BiV pacer/defibrillator implantation 08/07/2021 ongoing issues include 1. Chronic stable coronary artery disease, status post PCI to the RCA x2 in LAD x3 in the past with subsequent CABG x3 in 2003 with RODRÍGUEZ to the LAD, SVG to 2 separate diagonal a. Repeat coronary yrqbzondhgq19/2020 at [facility] no lesions noted that PCI would improve his functional status. Medical management advised. 2. Mixed ischemic and nonischemic cardiomyopathy, Chronic systolic CHF, NYHA class 2-3 3. Permanent atrial fibrillation, on Coumadin and digoxin, [id number] score of 5 (age 2, CHF, hypertension, CAD) 4. Hypertension 5. Pacer defibrillator implantation 08/07/2021 biventricular Patient presents this admission have been undergoing pacer defibrillator implantation 08/07/2021. Patient notes chronic dyspnea that became more pronou nced midday 08/08 and worsened to ER presentation on 08/10/2021. Chest x-ray demonstrated large left pneumothorax and patient underwent emergent chest tube insertion. Symptoms have improved. This morning only chest discomfort at chest tube site, surgical site of pacer defibrillator No fevers or chills. No productive cough. Notable crepitus on exam Allergies Allergy/AdvReac Type Severity Reaction Status Date / Time No Known Allergies Allergy Verified 08/05/21 13:39 Home Medications Medication Instructions Recorded Confirmed Type acetylcarnitine 500 mg capsule 1,000 mg PO QPM 08/05/21 08/10/21 History allopurinol 100 mg tablet 100 mg PO QAM 08/05/21 08/10/21 History atorvastatin 80 mg tablet 80 mg PO QAM 08/05/21 08/10/21 History eplerenone 25 mg tablet (Inspra) 25 mg PO QAM 08/05/21 08/10/21 History ezetimibe 10 mg tablet 10 mg PO QAM 08/05/21 08/10/21 History furosemide 40 mg tablet (Lasix) 20 mg PO QPM 08/05/21 08/10/21 History furosemide 40 mg tablet (Lasix) 40 mg PO QAM 08/05/21 08/10/21 History sacubitril 97 mg-valsartan 103 mg 1 tab PO BID 08/05/21 08/10/21 History tablet (Entresto) vitamins A,C,A-xhxs-ydinnl 14,320 1 cap PO QAM 08/05/21 08/10/21 History unit-226 mg-200 unit capsule (PreserVision AREDS) warfarin 5 mg tablet 5 - 7.5 mg PO UD 08/05/21 08/10/21 History metoprolol succinate 50 mg 100 mg PO BID #0 tab 08/07/21 08/10/21 Rx tablet,extended release 24 hr (Toprol XL) digoxin 125 mcg (0.125 mg) tablet 62.5 mcg PO QPM 08/10/21 08/10/21 History Patient History Medical History Atrial fibrillation reason for upcoming ICD implant. CAD (coronary artery disease) s/p PCIs to RCA x 2 and LAD x 3, "CABG in 2003 RODRÍGUEZ-LAD, SVG-D2, SVG-Y graft to anterior branch occluded by caht in 06/2019" [facility] cardio Congestive heart failure EF 25-30% per [facility] cardio records Gout Hyperlipidemia Hypertension Kidney stones Mitral regurgitation moderate Myocardial Infarction On anticoagulant therapy Osteoarthritis Tricuspid regurgitation moderate Surgical History History of arthroscopy Left knee arthroscopy History of cardiac cath x3 (last done about ~2001) [place], [place] History of cataract surgery bilateral History of colonoscopy History of coronary artery bypass graft x2 or x3 vessels at [facility] (~2015) History of heart artery stent total of x3 or 4 stents. History of herniorrhaphy inguinal hernia repair History of lithotripsy History of removal of calculus of renal pelvis through percutaneous nephrostomy Family History Other No family history of adverse response to anesthesia No significant family history Social History Smoking Status: Never smoker Second Hand Exposure: No; Hx Alcohol Use: Yes Alcohol type: wine Hx Substance Use: No Preferred Language: Lithuanian Communication Ability: Effective Manager Of Distribution Required: No Beliefs That Will Affect Care: None Current Living Situation: Spouse Current Living Situation Comment: LIVES WITH current occupational status: retired Other Information That Helps Us Care for You: No Feels Safe at Home: Yes Safety Concerns: Feels Safe At This Time Assistive Devices: Denture - Upper, Denture - Lower and Glasses Review of Systems Review of Systems: All systems reviewed & are unremarkable except as noted in HPI & below Physical Exam Constitutional: no acute distress Eyes: PERRL, conjunctivae normal, anicteric sclerae ENMT: external ear and nose normal, oropharynx normal Neck: trachea midline, no thyromegaly Respiratory: Auscultation: + diminished lung sounds and + crackles Cardiovascular: Rate/Rhythm: + irregularly irregular Chest (Breasts): Chest: + pacemaker Additional Comments: Left-sided chest tube in place Crepitus overlying the left chest wall Gastrointestinal (Abdomen): normal bowel sounds, soft, nontender, no hepatosplenomegaly Musculoskeletal: no cyanosis or clubbing, extremities motor strength 5/5 Psychiatric: A+Ox3, euthymic affect Results & Data ([facility]) Vital Signs (Past 12 Hours) Vital Signs Temp Pulse Pulse Resp BP BP Pulse Ox 08/11/21 11:05 36.6 C 86 19 111/67 91 08/11/21 07:58 36.7 C 99 H 18 126/83 93 08/11/21 07:56 84 08/11/21 04:17 36.5 C 93 H 18 120/82 93 Laboratory Results Laboratory Results - last 24 hr 08/10/21 08/10/21 08/10/21 12:50 12:50 12:50 WBC 8.80 RBC 4.58 L Hgb 14.5 Hct 45.4 MCV 99.1 MCH 31.7 MCHC 31.9 L RDW Std Deviation 56.2 H RDW Coeff of Everardo 15.4 H Plt Count 197 MPV 10.2 Immature Gran % (Auto) 0.1 Neut % (Auto) 72.6 Lymph % (Auto) 15.5 [place] % (Auto) 9.7 Eos % (Auto) 1.6 Baso % (Auto) 0.5 Neut # (Auto) 6.40 Lymph # (Auto) 1.36 [place] # (Auto) 0.85 H Eos # (Auto) 0.14 Baso # (Auto) 0.04 Immature Gran # (Auto) 0.01 PT 18.6 H INR 1.8 H APTT 33.8 H PTT Ratio 1.2 VBG pH VBG pCO2 VBG pO2 VBG HCO3 VBG O2 Saturation VBG Base Excess Barometric Pressure Sodium Potassium Chloride Carbon Dioxide Anion Gap BUN Creatinine Est Cr Clr Drug Dosing Est GFR ( Amer) Est GFR (Non-Af Amer) BUN/Creatinine Ratio Glucose Calcium Magnesium Total Bilirubin AST ALT Alkaline Phosphatase Troponin I High Sens 16.9 B-Natriuretic Peptide Total Protein Albumin Globulin Albumin/Globulin Ratio Urine Color Urine Appearance Urine pH Ur Specific [place] Urine Protein Urine Glucose (UA) Urine Ketones Urine Blood Urine Nitrite Urine Bilirubin Urine Urobilinogen Ur Leukocyte Esterase SARS-CoV-2, RNA, NAAT 08/10/21 08/10/21 08/10/21 12:50 12:50 13:10 WBC RBC Hgb Hct MCV MCH MCHC RDW Std Deviation RDW Coeff of Everardo Plt Count MPV Immature Gran % (Auto) Neut % (Auto) Lymph % (Auto) [place] % (Auto) Eos % (Auto) Baso % (Auto) Neut # (Auto) Lymph # (Auto) [place] # (Auto) Eos # (Auto) Baso # (Auto) Immature Gran # (Auto) PT INR APTT PTT Ratio VBG pH 7.41 VBG pCO2 42 VBG pO2 53 VBG HCO3 27 VBG O2 Saturation 86.5 VBG Base Excess 1.6 Barometric Pressure 734.8 Sodium 139 Potassium 4.0 Chloride 105 Carbon Dioxide 26 Anion Gap 8 BUN 24 H Creatinine 1.02 Est Cr Clr Drug Dosing 66.5 Est GFR ( Amer) 77.3 Est GFR (Non-Af Amer) 66.7 BUN/Creatinine Ratio 23.5 H Glucose 124 H Calcium 9.2 Magnesium 1.8 Total Bilirubin 1.2 H AST 22 ALT 19 Alkaline Phosphatase 52 Troponin I High Sens B-Natriuretic Peptide 583 H Total Protein 6.9 Albumin 4.4 Globulin 2.5 Albumin/Globulin Ratio 1.8 Urine Color Urine Appearance Urine pH Ur Specific [place] Urine Protein Urine Glucose (UA) Urine Ketones Urine Blood Urine Nitrite Urine Bilirubin Urine Urobilinogen Ur Leukocyte Esterase SARS-CoV-2, RNA, NAAT 08/10/21 08/10/21 08/11/21 14:00 15:55 07:17 WBC 7.19 RBC 4.24 L Hgb 13.1 L Hct 40.7 L MCV 96.0 MCH 30.9 MCHC 32.2 RDW Std Deviation 52.2 H RDW Coeff of Everardo 15.0 H Plt Count 157 MPV 9.7 Immature Gran % (Auto) 0.1 Neut % (Auto) 70.8 Lymph % (Auto) 17.4 [place] % (Auto) 9.6 Eos % (Auto) 1.8 Baso % (Auto) 0.3 Neut # (Auto) 5.09 Lymph # (Auto) 1.25 [place] # (Auto) 0.69 H Eos # (Auto) 0.13 Baso # (Auto) 0.02 Immature Gran # (Auto) 0.01 PT INR APTT PTT Ratio VBG pH VBG pCO2 VBG pO2 VBG HCO3 VBG O2 Saturation VBG Base Excess Barometric Pressure Sodium Potassium Chloride Carbon Dioxide Anion Gap BUN Creatinine Est Cr Clr Drug Dosing Est GFR ( Amer) Est GFR (Non-Af Amer) BUN/Creatinine Ratio Glucose Calcium Magnesium Total Bilirubin AST ALT Alkaline Phosphatase Troponin I High Sens B-Natriuretic Peptide Total Protein Albumin Globulin Albumin/Globulin Ratio Urine Color Yellow Urine Appearance Clear Urine pH 5.0 Ur Specific [place] 1.014 Urine Protein Negative Urine Glucose (UA) Negative Urine Ketones Negative Urine Blood Negative Urine Nitrite Negative Urine Bilirubin Negative Urine Urobilinogen Negative Ur Leukocyte Esterase Negative SARS-CoV-2, RNA, NAAT NEGATIVE 08/11/21 08/11/21 07:17 07:17 WBC RBC Hgb Hct MCV MCH MCHC RDW Std Deviation RDW Coeff of Everardo Plt Count MPV Immature Gran % (Auto) Neut % (Auto) Lymph % (Auto) [place] % (Auto) Eos % (Auto) Baso % (Auto) Neut # (Auto) Lymph # (Auto) [place] # (Auto) Eos # (Auto) Baso # (Auto) Immature Gran # (Auto) PT 18.6 H INR 1.8 H APTT PTT Ratio VBG pH VBG pCO2 VBG pO2 VBG HCO3 VBG O2 Saturation VBG Base Excess Barometric Pressure Sodium 139 Potassium 3.8 Chloride 107 Carbon Dioxide 27 Anion Gap 5 BUN 22 Creatinine 0.78 Est Cr Clr Drug Dosing 87.6 Est GFR ( Amer) 95.4 Est GFR (Non-Af Amer) 82.3 BUN/Creatinine Ratio 28.2 H Glucose 105 H Calcium 8.6 Magnesium Total Bilirubin AST ALT Alkaline Phosphatase Troponin I High Sens B-Natriuretic Peptide Total Protein Albumin Globulin Albumin/Globulin Ratio Urine Color Urine Appearance Urine pH Ur Specific [place] Urine Protein Urine Glucose (UA) Urine Ketones Urine Blood Urine Nitrite Urine Bilirubin Urine Urobilinogen Ur Leukocyte Esterase SARS-CoV-2, RNA, NAAT
--- NOTE | 2021-08-11 12:21 | Hospitalist Progress Note ---
Date of Service August 11, 2021 Assessment & Plan (1) Pneumothorax, left: Plan: 86-year-old male with history of coronary disease status post stent, CHF ejection fraction 25 to 29%, Atrial fibrillation, status post pacemaker placement August 07, severe mitral regurgitation, hypertension, CKD stage III, etc. presenting with shortness of Breath. Left-sided large hemothorax Status post chest tube placement 08/10/2021 In the setting of pacemaker placement 08/07/2021 Doing well after chest tube placement Repeat chest x-ray showing pneumothorax mostly resolved Hemodynamically stable Hold usual Coumadin for now Pacemaker interrogation performed General surgery following the patient Cardiology service consult 08/11 doing well overall CXR: stable continue chest tube, plan on removal Tues monitor closely Coronary disease status post stent placement Denies chest pain or any other cardiac symptoms Continue aspirin, ezetimibe Chronic systolic CHF Ejection fraction 25 to 20% Euvolemic Continue sacubitril/valsartan, Lasix, digoxin, metoprolol Atrial fibrillation Heart rate controlled Continue metoprolol, eplerenone, digoxin INR 1.8 hold coumadin for now due to hematoma over PM site observe possibly resume coumadin tomorrow INR tomorrow Hypertension Mildly elevated Monitor CKD stage III Stable DVT prophylaxis INR 1.8 heparin SC q12h Full code Disposition Anticipate discharge home medically plan of care discussed with patient in detail and at length all questions answered he is understanding, agreeable, comfortable with the plan of care Admission and Anticipated Discharge Date Admission Date: August 10, 2021 Subjective ff up for L large pneumothorax, etc seen resting in bed, comfortable in good spirits states he feels fine overall no chest pain, dyspnea, palpitations, dizziness no other symptoms Review of Systems Review of Systems: all noted and negative except for above Physical Exam Physical Exam: General- oriented x 3, not in distress, speaks in sentences with no effort or accessory muscle use Eyes- anicteric Neck- no JVD Lungs- clear breath sounds bilaterally, no rales/wheezes L sided chest tube in place Heart- normal rate, regular rhythm; no murmurs (+) mild hematoma surrounding PM site incision healing well - no discharge or bleeding Abdomen- normal bowel sounds, nondistended, soft, nontender Extremities- no pretibial edema, no calf tenderness Neuro- alert, oriented x 3; no gross focal neurologic deficits Skin- warm & dry Results & Data Results & Data ([facility]) Vital Signs (Past 12 Hours) Vital Signs Temp Pulse Pulse Resp BP BP Pulse Ox 08/11/21 11:05 36.6 C 86 19 111/67 91 08/11/21 07:58 36.7 C 99 H 18 126/83 93 08/11/21 07:56 84 08/11/21 04:17 36.5 C 93 H 18 120/82 93 all noted and reviewed including below
[2021-08-11] MEDS: EPLERENONE 25 MG PO SCH (14:09)
[2021-08-11] MEDS: FUROSEMIDE 20 MG TAB PO SCH (17:18)
[2021-08-11] MEDS: DIGOXIN 0.125 MG TAB PO SCH (19:37)
--- NOTE | 2021-08-12 06:32 | Electrocardiogram Report ---
Test Reason : Blood Pressure : / mmHG Vent. Rate : 125 BPM Atrial Rate : 141 BPM P-R Int : 000 ms QRS Dur : 110 ms QT Int : 282 ms P-R-T Axes : 054 216 056 degrees QTc Int : 407 ms Poor data quality, interpretation may be adversely affected Atrial fibrillation with Ventricular-paced rhythm Abnormal ECG When compared with ECG of 07-AUG-2021 11:20, Vent. rate has increased BY 46 BPM Confirmed by Leonardo Mars ([id number]) on 08/12/2021 6:31:43 AM Referred By: Confirmed By:Leonardo Mars
--- NOTE | 2021-08-12 06:56 | Electrocardiogram Report ---
Test Reason : Blood Pressure : / mmHG Vent. Rate : 089 BPM Atrial Rate : 105 BPM P-R Int : 000 ms QRS Dur : 124 ms QT Int : 384 ms P-R-T Axes : 000 063 -80 degrees QTc Int : 467 ms Atrial fibrillation with a demand pacemaker Abnormal ECG When compared with ECG of 10-AUG-2021 12:45, (unconfirmed) Vent. rate has decreased BY 36 BPM Confirmed by Leonardo Mars ([id number]) on 08/12/2021 6:55:47 AM Referred By: REFERRED SELF Confirmed By:Leonardo Mars
[2021-08-12 06:58] LABS: Basophils # (auto) 0.03 K/uL (0-0.2); Basophils % (auto) 0.4 %; Eosinophils % (auto) 2.9 %; Hematocrit (blood only) 40.3 % (42-52); Immature Granulocytes # (auto) 0.01 K/uL (0.00-0.02); Immature Granulocytes % (auto) 0.1 %; Lymphocytes # (auto) 1.59 K/uL (1.2-3.4); Lymphocytes % (auto) 22.8 %; Mean Corpuscular Hemoglobin 30.9 pg (25-34); Mean Corpuscular Hgb Conc 32.3 g/dL (32-36); Mean Corpuscular Volume 95.7 fL (80-100); Mean Platelet Volume 9.9 fL (7.4-10.4); Monocytes # (auto) 0.53 K/uL (0.11-0.59); Monocytes % (auto) 7.6 %; Neutrophils % (auto) 66.2 %; Platelet Count 163 K/uL (130-400); RDW Coefficient of Variation 14.9 % (11.5-14.5); RDW Standard Deviation 52.2 fL (36.4-46.3); Red Blood Count 4.21 M/uL (4.7-6.1); White Blood Count 6.96 K/uL (4.8-10.8)
[2021-08-12 07:09] LABS: INR 1.4 (0.9-1.1); Prothrombin Time 14.6 Seconds (9.0-12.0)
[2021-08-12 07:22] LABS: BUN Creatinine Ratio 21.9 (10-20); Calcium 8.6 mg/dl (8.5-10.1); Creatinine Clr Calc Pharmacy 71.1 ml/min; Est GFR (African American) 83.2 ml/min; Est GFR (Non-African American) 71.8 ml/min; Potassium 4.4 mmol/L (3.5-5.1)
[2021-08-12] MEDS: VALSARTAN/SACUBITRIL 103/97MG TAB PO SCH ×2 (08:25→19:59)
[2021-08-12] MEDS: FUROSEMIDE 40 MG TAB PO SCH (08:26)
[2021-08-12] MEDS: METOPROLOL SUCC 50MG EXT REL TAB PO SCH ×2 (08:26→19:59)
[2021-08-12] MEDS: allopurinoL 100 MG TAB PO SCH (08:26)
[2021-08-12] MEDS: ATORVASTATIN 40 MG TAB PO SCH (08:26)
[2021-08-12] MEDS: EZETIMIBE 10 MG TABLET PO SCH (08:26)
[2021-08-12] MEDS: EPLERENONE 25 MG PO SCH (08:27)
--- NOTE | 2021-08-12 09:45 | XRay Report ---
XR chest 1V portable HISTORY: Follow left chest tube COMPARISON: Chest 08/11/2021. FINDINGS: The left-sided chest tube is unchanged in position. Suspect a tiny left pneumothorax remain ing. Left chest wall subcutaneous emphysema persists. The heart remains mildly enlarged. Poststernoto my changes and a left-sided pacemaker again noted. Patchy densities within the left mid to lower lung zone have improved in the interval. Trace left pleural effusion persists. IMPRESSION: 1. Left-sided chest tube remains unchanged in position. Suspect a tiny left apical pneumothorax remai teresita. 2. Left chest wall subcutaneous emphysema persists. 3. Left mid to lower lung zone airspace opacities have improved. ACT 112: Negative or not required by law. Electronically signed by: Luis M Gabriel M.D. 08/12/2021 9:44 AM
--- NOTE | 2021-08-12 10:03 | Cardiology Progress Note ---
Date of Service August 12, 2021 Assessment & Plan (1) Pneumothorax, left: (2) Ischemic cardiomyopathy: (3) Permanent atrial fibrillation: Plan: Patient is an 86-year-old male who underwent pacer defibrillator implantation on 08/08/2027 presents now with large left pneumothorax. Patient is undergone emergent chest thoracostomy with reexpansion of the lung- chest tube placed to water-seal this am. Pacer defibrillator functioning appropriately Hemodynamically stable, remains on room air Usual medications resumed. Eplerenone was added. Coumadin held at this time due to chest tube being in place. Watch closely for signs of ischemia or worsening congestive heart failure. Currently euvolemic on exam. Agree with evaluation for rehab at [facility] at discharge. Admission and Anticipated Discharge Date Admission Date: August 10, 2021 Supervising Physician Co-Signing Physician Notes Patient seen examined the bedside. Notes mild discomfort associated with chest tube. Placed to waterseal today. Denies palpitations, lightheadedness, or dizziness. Telemetry reveals atrial fibrillation. Offers no concerns/ complaints. PE: VSS. Gen: NAD, AAO x3. Heart: Regular rhythm, normal S1-S2. No murmur. Lungs: Left-sided crepitus. No rales, rhonchi, wheeze. Abdomen: Soft nontender, no rebound or guarding. Extremities: No edema. A/P: Agree with above AP history, physical exam, assessment and plan. Chest tube management as per pulmonary medicine. Restart warfarin when chest tube removed. Continue other cardiovascular medications as previously ordered. Subjective Patient is an 86-year-old male who underwent pacer defibrillator implantation on 08/08/2027 presents now with large left pneumothorax. Undergone emergent chest thoracostomy with reexpansion of the lung. Labs this am: CBC stable. INR 1.4 (Coumadin currently held). Renal function stable. CXR 08/12: 1. Left-sided chest tube remains unchanged in position. Suspect a tiny left apical pneumothorax remaining. 2. Left chest wall subcutaneous emphysema persists. 3. Left mid to lower lung zone airspace opacities have improved. Tele: Afib 100-110s, 80-90s over night. Upon entrance into the room patient resting comfortably in bed on his computer. Stated that he is feeling much better today. Shortness of breath resolved- however, he is worried about getting out of bed and moving. Inquiring about going to rehab at [facility] at discharge. Denies chest pain. Notes some sorenss over the ppm site. Review of Systems Review of Systems: All systems reviewed & are unremarkable except as noted in HPI & below Physical Exam Constitutional: no acute distress Eyes: PERRL, conjunctivae normal, anicteric sclerae ENMT: external ear and nose normal, oropharynx normal Neck: trachea midline, no thyromegaly Respiratory: Auscultation: + diminished lung sounds (Left lower lobe) and + crackles (BL lower lobes) Cardiovascular: Rate/Rhythm: + tachycardic and + irregularly irregular Chest (Breasts): Chest: + pacemaker (incision site bruising) Gastrointestinal (Abdomen): normal bowel sounds, soft, nontender, no hepatosplenomegaly Musculoskeletal: no cyanosis or clubbing, extremities motor strength 5/5 Psychiatric: A+Ox3, euthymic affect Results & Data ([facility]) Vital Signs (Past 12 Hours) Vital Signs Temp Pulse Resp BP Pulse Ox 08/12/21 07:46 36.5 C 80 16 122/78 96 08/12/21 03:54 36.7 C 100 H 18 126/78 95 08/11/21 23:48 36.8 C 88 18 116/75 95 Laboratory Results Coagulation 08/12/21 Range/Units 06:37 PT 14.6 H (9.0-12.0) Seconds CBC 08/12/21 Range/Units 06:37 WBC 6.96 (4.8-10.8) K/uL RBC 4.21 L (4.7-6.1) M/uL Hgb 13.0 L (14.0-18.0) g/dL Hct 40.3 L (42-52) % Plt Count 163 (130-400) K/uL Neut # (Auto) 4.60 (1.4-6.5) K/uL Lymph # (Auto) 1.59 (1.2-3.4) K/uL [place] # (Auto) 0.53 (0.11-0.59) K/uL Eos # (Auto) 0.20 (0-0.5) K/uL Baso # (Auto) 0.03 (0-0.2) K/uL Comprehensive Metabolic Panel 08/12/21 Range/Units 06:37 Sodium 139 (136-145) mmol/L Potassium 4.4 (3.5-5.1) mmol/L Chloride 105 (98-107) mmol/L Carbon Dioxide 30 (21-32) mmol/L BUN 21 (6-23) mg/dl Creatinine 0.96 (0.6-1.4) mg/dl Glucose 97 (70-99(Fasting)) mg/dl Calcium 8.6 (8.5-10.1) mg/dl Intake and Output 08/11/21 08/12/21 08/12/21 22:59 06:59 14:59 Intake Total 450 / 1210 400 / 1210 Output Total 725 / 1400 350 / 1400 Balance -275 / -190 50 / -190 Intake: Oral 450 / 1210 400 / 1210 Output: Urine 675 / 1350 350 / 1350 Chest Tube Drainage 50 / 50 Left Mid-Axillary Chest Pleur- 50 / 50 Evac Nena Other: Weight 103.4 kg Weight Measurement Method Built in [facility] Diagnostic Findings Echo 05/27/2021 The primary indication after review was deemed appropriate and the examination was performed. Mildly dilated LV chamber size with moderate concentric LVH. Severely reduced LV systolic function with severe global hypokinesis. EF 25 to 30%. Grade 3 diastolic dysfunction. Mild aortic valve sclerosis without stenosis. Moderate mitral regurgitation. Moderate tricuspid regurgitation. Severe biatrial enlargement.
--- NOTE | 2021-08-12 10:30 | Surgery Progress Note ---
Date of Service August 12, 2021 Assessment & Plan (1) Pneumothorax: Plan: Pt here with left PTX s/p pacemaker placement He is feeling well with no complaints CXR today shows a suspected tiny L apical ptx. We will trial placing chest tube to water seal today Repeat CXR tomorrow, if looks okay we will remove it Admission and Anticipated Discharge Date Admission Date: August 10, 2021 Supervising Physician Co-Signing Physician Notes I personally saw and evaluated the patient with Makenzie Munoz PA-C and agree with the assessment and plan. 86-year-old male with left pneumothorax status post left chest tube placement A.m. chest x-ray viewed by me, tiny apical pneumothorax still present We will place chest tube to waterseal today Repeat chest x-ray in a.m., if it remains unchanged or improved we will plan on removal tomorrow We will follow Subjective Patient is feeling well. No shortness of breath. Physical Exam Physical Exam: awake/alert Respiratory: normal respiratory effort on room air chest tube to suction Results & Data ([facility]) Vital Signs (Past 12 Hours) Vital Signs Temp Pulse Resp BP Pulse Ox 08/12/21 07:46 36.5 C 80 16 122/78 96 08/12/21 03:54 36.7 C 100 H 18 126/78 95 08/11/21 23:48 36.8 C 88 18 116/75 95 PG Care Time/CCT Total # of Minutes Spent Total Time Spent with Patient: Total time spent is greater than 50% in coordination of care (as documented) at patient's floor/unit and/or counseling patient: Coding Level of Care Code 71059 Subseq Hosp Care Lvl 1 Diagnoses Pneumothorax J93.9 Pneumothorax type: unspecified pneumothorax (1) Pneumothorax Pneumothorax type: unspecified pneumothorax Qualified Code(s): J93.9 - Pneumothorax, unspecified
--- NOTE | 2021-08-12 16:00 | Hospitalist Progress Note ---
Date of Service August 12, 2021 delayed entry date of service noted above Assessment & Plan (1) Pneumothorax, left: Plan: 86-year-old male with history of coronary disease status post stent, CHF ejection fraction 25 to 29%, Atrial fibrillation, status post pacemaker placement August 07, severe mitral regurgitation, hypertension, CKD stage III, etc. presenting with shortness of Breath. Postprocedural pneumothorax due to pacemaker insertion Left-sided large hemothorax Status post chest tube placement 08/10/2021 In the setting of pacemaker placement 08/07/2021 Doing well after chest tube placement Repeat chest x-ray showing pneumothorax mostly resolved Hemodynamically stable Hold usual Coumadin for now Pacemaker interrogation performed General surgery following the patient Cardiology service consult 08/12 doing well overall CXR: 1. Left-sided chest tube remains unchanged in position. Suspect a tiny left apical pneumothorax remaining. 2. Left chest wall subcutaneous emphysema persists. 3. Left mid to lower lung zone airspace opacities have improved. continue chest tube, plan on removal Tues monitor closely Coronary disease status post stent placement Denies chest pain or any other cardiac symptoms Continue aspirin, ezetimibe Chronic systolic CHF Ejection fraction 25 to 20% Euvolemic Continue sacubitril/valsartan, Lasix, digoxin, metoprolol Atrial fibrillation Heart rate controlled Continue metoprolol, eplerenone, digoxin INR 1.2 hold coumadin for now due to hematoma over PM site observe possibly resume coumadin tomorrow INR tomorrow Hypertension Mildly elevated Monitor CKD stage III Stable DVT prophylaxis INR 1.2 heparin SC q12h Full code Disposition Anticipate discharge home medically plan of care discussed with patient in detail and at length all questions answered he is understanding, agreeable, comfortable with the plan of care Admission and Anticipated Discharge Date Admission Date: August 10, 2021 Subjective ff up for pneumotx, etc seen resting in bed, comfortable sitting up having dinner states he feels fine overall breathing is back to baseline no chest pain, dyspnea, palpitations, dizziness no other symptoms Review of Systems Review of Systems: all noted and negative except for above Physical Exam Physical Exam: General- oriented x 3, not in distress, speaks in sentences with no effort or accessory muscle use Eyes- anicteric Neck- no JVD Lungs- clear breath sounds bilaterally, no rales/wheezes chest tube in place- no bleeding noted Heart- normal rate, regular rhythm; no murmurs Abdomen- normal bowel sounds, nondistended, soft, nontender Extremities- no pretibial edema, no calf tenderness Neuro- alert, oriented x 3; no gross focal neurologic deficits Skin- warm & dry Results & Data Results & Data ([facility]) Vital Signs (Past 12 Hours) Vital Signs Temp Pulse Resp BP Pulse Ox 08/12/21 15:48 36.7 C 84 16 107/66 97 08/12/21 11:57 36.7 C 68 16 106/69 97 08/12/21 07:46 36.5 C 80 16 122/78 96 all noted and reviewed including below
[2021-08-12] MEDS: FUROSEMIDE 20 MG TAB PO SCH (16:18)
[2021-08-12] MEDS: DIGOXIN 0.125 MG TAB PO SCH (19:59)
[2021-08-13 07:08] LABS: Basophils # (auto) 0.03 K/uL (0-0.2); Basophils % (auto) 0.4 %; Eosinophils # (auto) 0.22 K/uL (0-0.5); Eosinophils % (auto) 2.9 %; Hematocrit (blood only) 38.9 % (42-52); Hemoglobin 12.7 g/dL (14.0-18.0); Immature Granulocytes # (auto) 0.01 K/uL (0.00-0.02); Immature Granulocytes % (auto) 0.1 %; Lymphocytes # (auto) 1.27 K/uL (1.2-3.4); Mean Corpuscular Hemoglobin 31.1 pg (25-34); Mean Corpuscular Hgb Conc 32.6 g/dL (32-36); Mean Corpuscular Volume 95.3 fL (80-100); Mean Platelet Volume 9.9 fL (7.4-10.4); Monocytes # (auto) 0.74 K/uL (0.11-0.59); Monocytes % (auto) 9.9 %; Neutrophils # (auto) 5.21 K/uL (1.4-6.5); Neutrophils % (auto) 69.7 %; Platelet Count 163 K/uL (130-400); RDW Coefficient of Variation 14.6 % (11.5-14.5); RDW Standard Deviation 50.9 fL (36.4-46.3); Red Blood Count 4.08 M/uL (4.7-6.1); White Blood Count 7.48 K/uL (4.8-10.8)
[2021-08-13 07:21] LABS: INR 1.2 (0.9-1.1); Prothrombin Time 12.4 Seconds (9.0-12.0)
--- NOTE | 2021-08-13 07:33 | XRay Report ---
XR chest 1V portable HISTORY: 86 years-old Male Follow left chest tube left-sided pneumothorax. COMPARISON: Chest radiograph 08/12/2021 TECHNIQUE: AP view of the chest FINDINGS: The cardiac silhouette is enlarged. Prior median sternotomy. Atherosclerosis of the aorta. Left subcl karen pacer/AICD. A left-sided chest tube is in place with distal tip projected over the left midlung . Suspected persistent trace left apical pneumothorax. Subcutaneous emphysema of the left lateral [address] wall and left supraclavicular tissues. Left mid to lower lung zone airspace opacities are again no vero. IMPRESSION: 1. Stable positioning of the left-sided chest tube with possible persistent trace left apical pneumot horax. 2. Cardiomegaly without pulmonary edema. 3. Persistent opacities of the left mid to lower lung zones. 4. Subcutaneous emphysema of the left lateral chest wall and supraclavicular tissues. ACT 112: Negative or not required by law. The above report was generated using voice recognition software. It may contain grammatical, syntax o r spelling errors. Electronically signed by: Andrei Rodríguez M.D. 08/13/2021 7:32 AM
--- NOTE | 2021-08-13 08:05 | Cardiology Progress Note ---
Date of Service August 13, 2021 Assessment & Plan (1) Pneumothorax, left: (2) Ischemic cardiomyopathy: (3) Permanent atrial fibrillation: Plan: Patient is an 86-year-old male who underwent pacer defibrillator implantation on 08/08/2027 presents now with large left pneumothorax. Patient is undergone emergent chest thoracostomy with reexpansion of the lung- chest tube placed to water-seal 08/13, Chest tube removed 08/13. Hemodynamically stable, remains on room air. Usual medications resumed. Eplerenone was added. Coumadin held at this time due to chest tube being in place- will plan on resuming Coumadin now that CT is removed. Orders placed for Coumadin 7.5 mg today- will reach out to his outpatient Coumadin clinic regarding management. Watch closely for signs of ischemia or worsening congestive heart failure and recurrent shortness of breath symptoms. Currently euvolemic on exam. Agree with evaluation for rehab at [facility] at discharge- PT/OT evaluation ordered. Admission and Anticipated Discharge Date Admission Date: August 10, 2021 Supervising Physician Co-Signing Physician Notes Patient seen examined the bedside. Chest tube removed today. Denies palpitations, lightheadedness, or dizziness. Telemetry reveals atrial fibrillation with borderline elevated heart rate. Offers no concerns/co mplaints. PE: VSS. Gen: NAD, AAO x3. Heart: Regular rhythm, normal S1-S2. No murmur. Lungs: Left-sided crepitus. No rales, rhonchi, wheeze. Abdomen: Soft nontender, no rebound or guarding. Extremities: No edema. A/P: Agree with above AP history, physical exam, assessment and plan. Increase digoxin to 125 mcg daily. Restart warfarin today with close [facility] clinic follow- up. Continue other cardiovascular medications as previously ordered. Outpatient cardiology follow-up in 1 week for wound check and device interrogation. Subjective Patient is an 86-year-old male who underwent pacer defibrillator implantation on 08/08/2027 presents now with large left pneumothorax. Undergone emergent chest thoracostomy with reexpansion of the lung. Chest tube placed to water-seal 08/12. Labs this am: CBC stable. INR 1.2 (Coumadin currently held). Renal function stable. CXR 08/13: 1. Stable positioning of the left-sided chest tube with possible persistent trace left apical pneumothorax. 2. Cardiomegaly without pulmonary edema. 3. Persistent opacities of the left mid to lower lung zones. 4. Subcutaneous emphysema of the left lateral chest wall and supraclavicular tissues. Tele: paced/afib 80-100 bpm Patient seen and examined, chart reviewed. Upon entrance into the room patient resting comfortably in bed. CT just removed. Stated that he is feeling well today. Shortness of breath resolved. Inquiring about going to rehab at [facility] at discharge. Denies chest pain. No pain. No palpitations, dizziness, syncope. Review of Systems Review of Systems: All systems reviewed & are unremarkable except as noted in HPI & below Physical Exam Constitutional: no acute distress Left chest tube site clean dry and intact- CT pulled this am, 08/13 Eyes: PERRL, conjunctivae normal, anicteric sclerae ENMT: external ear and nose normal, oropharynx normal Neck: trachea midline, no thyromegaly Respiratory: Auscultation: + crackles (Left lower lobes) Cardiovascular: Rate/Rhythm: + irregularly irregular Chest (Breasts): Chest: + pacemaker (incision site bruising) Gastrointestinal (Abdomen): normal bowel sounds, soft, nontender, no hepatosplenomegaly Musculoskeletal: no cyanosis or clubbing, extremities motor strength 5/5 Psychiatric: A+Ox3, euthymic affect Results & Data ([facility]) Vital Signs (Past 12 Hours) Vital Signs Temp Pulse Resp BP Pulse Ox 08/13/21 03:51 36.4 C L 88 16 116/76 94 08/12/21 23:38 36.4 C L 90 20 110/72 95 Laboratory Results Coagulation 08/13/21 Range/Units 06:33 PT 12.4 H (9.0-12.0) Seconds CBC 08/13/21 Range/Units 06:33 WBC 7.48 (4.8-10.8) K/uL RBC 4.08 L (4.7-6.1) M/uL Hgb 12.7 L (14.0-18.0) g/dL Hct 38.9 L (42-52) % Plt Count 163 (130-400) K/uL Neut # (Auto) 5.21 (1.4-6.5) K/uL Lymph # (Auto) 1.27 (1.2-3.4) K/uL [place]aden # (Auto) 0.74 H (0.11-0.59) K/uL Eos # (Auto) 0.22 (0-0.5) K/uL Baso # (Auto) 0.03 (0-0.2) K/uL Comprehensive Metabolic Panel 08/13/21 Range/Units 06:33 Sodium 138 (136-145) mmol/L Potassium 3.7 (3.5-5.1) mmol/L Chloride 103 (98-107) mmol/L Carbon Dioxide 30 (21-32) mmol/L BUN 17 (6-23) mg/dl Creatinine 0.86 (0.6-1.4) mg/dl Glucose 100 H (70-99(Fasting)) mg/dl Calcium 8.6 (8.5-10.1) mg/dl Intake and Output 08/12/21 08/13/21 08/13/21 22:59 06:59 14:59 Intake Total 300 / 1375 800 / 1375 Output Total 500 / 2375 1100 / 2375 Balance -200 / -1000 -300 / -1000 Intake: Oral 300 / 1375 800 / 1375 Output: Urine 500 / 2375 1100 / 2375 Estimated Blood Loss 0 / 0 Other: Weight 104.1 kg Weight Measurement Method Built in [facility]
[2021-08-13 08:42] LABS: BUN Creatinine Ratio 19.8 (10-20); Calcium 8.6 mg/dl (8.5-10.1); Creatinine Clr Calc Pharmacy 79.6 ml/min; Est GFR (African American) 91.6 ml/min; Est GFR (Non-African American) 79.1 ml/min; Potassium 3.7 mmol/L (3.5-5.1)
[2021-08-13] MEDS: allopurinoL 100 MG TAB PO SCH (08:50)
[2021-08-13] MEDS: EPLERENONE 25 MG PO SCH (08:50)
[2021-08-13] MEDS: FUROSEMIDE 40 MG TAB PO SCH (08:50)
[2021-08-13] MEDS: METOPROLOL SUCC 50MG EXT REL TAB PO SCH (08:50)
[2021-08-13] MEDS: VALSARTAN/SACUBITRIL 103/97MG TAB PO SCH (08:50)
[2021-08-13] MEDS: EZETIMIBE 10 MG TABLET PO SCH (08:51)
[2021-08-13] MEDS: ATORVASTATIN 40 MG TAB PO SCH (08:51)
--- NOTE | 2021-08-13 08:54 | Surgery Progress Note ---
Date of Service August 13, 2021 Assessment & Plan (1) Pneumothorax: Plan: CXR stable on water seal chest tube removed with Dr. Espinal repeat CXR, if stable consider d/c later today Admission and Anticipated Discharge Date Admission Date: August 10, 2021 Supervising Physician Co-Signing Physician Notes I personally saw and evaluated the patient with Yoan Abraham PA-C and agree with the assessment and plan. 86-year-old male with left pneumothorax status post left chest tube placement A.m. chest x-ray viewed by me, tiny apical pneumothorax still present Chest tube removed at bedside Repeat chest x-ray ordered, if pneumothorax is stable he will be able to be discharged home later We will have him follow-up with me in the office next week for suture removal He is to keep the occlusive bandage to the left chest on for 3 days Subjective no c/o Physical Exam Respiratory: minimal chest tube drainage, no air leak noted Results & Data ([facility]) Vital Signs (Past 12 Hours) Vital Signs Temp Pulse Resp BP Pulse Ox 08/13/21 08:11 36.5 C 86 18 105/71 95 08/13/21 03:51 36.4 C L 88 16 116/76 94 08/12/21 23:38 36.4 C L 90 20 110/72 95 PG Care Time/CCT Total # of Minutes Spent Total Time Spent with Patient: Total time spent is greater than 50% in coordination of care (as documented) at patient's floor/unit and/or counseling patient: Coding Level of Care Code None Diagnoses Pneumothorax J93.9 Pneumothorax type: unspecified pneumothorax (1) Pneumothorax Pneumothorax type: unspecified pneumothorax Qualified Code(s): J93.9 - Pne umothorax, unspecified
--- NOTE | 2021-08-13 10:42 | XRay Report ---
SINGLE VIEW CHEST CLINICAL HISTORY: Chest tube removal. FINDINGS: An AP, portable, upright chest radiograph is compared to study performed earlier the same d ay 08/13/2021. The patient is status post midline sternotomy. A 2-lead cardiac AICD is unchanged in pos ition and partially obscures the left mid chest. The heart is enlarged noting atherosclerotic calcifi cation of the thoracic aorta. The pulmonary vasculature is noncongested. A left-sided chest tube is h as been removed. Airspace opacities are again seen in the left lower lung. There is trace left pleura l effusion. No residual pneumothorax is clearly seen. The skeletal structures are osteopenic. The bon y thorax is grossly intact. Subcutaneous gas is seen throughout the left chest wall and in the left l ower neck. IMPRESSION: 1. A left-sided chest tube has been removed. No residual pneumothorax is clearly identified. 2. Subcutaneous gas is again seen throughout the left chest wall. 3. Airspace opacities in the left mid to lower lung are unchanged and there is trace left pleural eff usion. 4. Cardiomegaly and AICD with no radiographic evidence of congestive failure. ACT 112: Negative or not required by law. Electronically signed by: Dewayne Edwards M.D. 08/13/2021 10:41 AM
--- NOTE | 2021-08-13 15:30 | Discharge Summary ---
Date of Service August 13, 2021 Admission HPI Per Admitting Provider 86-year-old male with history of coronary disease status post stent, CHF ejection fraction 25 to 29%, Atrial fibrillation, status post pacemaker placement August 07, severe mitral regurgitation, hypertension, CKD stage III, etc. presenting with shortness of Breath. Patient status post biventricular pacemaker with ICD last August 07, 2021. Patient reported progressive shortness of breath since pacemaker placement. At the ER, patient was found to have large left-sided pneumothorax. Emergent left chest tube placement performed by general surgery service. Repeat chest x-ray showing significant improvement of the pneumothorax. On exam, patient is hemodynamically stable. On room air. Sitting up in bed, having dinner, comfortable States breathing is much better No chest pain, shortness of breath on exam. No other symptoms Admission Exam Per Admitting Provider General- oriented x 3, not in distress, speaks in sentences with no effort or ac cessory muscle use Head- atraumatic Eyes- PERRL, EOMI, anicteric ENT- oropharynx clear Neck- supple, no JVD, no adenopathy, no thyromegaly; carotids +2/2, no bruits appreciated Lungs- clear to auscultation bilaterally, no rales/wheezes Left-sided chest tube in place Heart- normal rate, regular rhythm; no murmur, no gallop, no rub appreciated Pacemaker site: Incision healing well No erythema/edema/hematoma, no discharge or bleeding next Abdomen- normal bowel sounds, nondistended, soft, nontender, no masses or hepatosplenomegaly Extremities- no pretibial edema, no calf tenderness; peripheral pulses intact Neuro- alert, oriented x 3; CN 2-12 grossly intact; motor 5/5 bilaterally;sensation 100% on all extremities; no other gross focal neurologic deficits Skin- warm & dry Principal Diagnosis LARGE LEFT SIDED PNEUMOTHORAX S/P PACEMAKER PLACEMENT Discharge Exam General- oriented x 3, not in distress, speaks in sentences with no effort or accessory muscle use Eyes- anicteric Neck- no JVD Lungs- clear breath sounds bilaterally, no rales/wheezes Heart- normal rate, regular rhythm; no murmurs Abdomen- normal bowel sounds, nondistended, soft, nontender Extremities- no pretibial edema, no calf tenderness Neuro- alert, oriented x 3; no gross focal neurologic deficits Skin- warm & dry Discharge Data Allergies Allergy/AdvReac Type Severity Reaction Status Date / Time No Known Allergies Allergy Verified 08/05/21 13:39 Consultations 08/10/21 13:29 Consult General Surgery Stat 08/10/21 15:29 ED Decision to Admit Stat 08/10/21 17:13 Consult Cardiology Routine Consult General Surgery Routine Procedures Performed XR chest 1V portable HISTORY: 86 years-old Male Dyspnea acute shortness of breath COMPARISON: 08/07/2021 TECHNIQUE: AP view of the chest FINDINGS: Cardiomegaly with prior median sternotomy. Left subclavian pacer/AICD. There is a large left-sided pneumothorax. No large pleural effusion, airspace consolidation or overt pulmonary edema. Possible slight rightward deviation of the mediastinal structures. Subcutaneous emphysema within the left supraclavicular tissues. The bones appear grossly intact. IMPRESSION: Large left-sided pneumothorax with possible developing tension component. Chest tube placement recommended. ACT 112: Negative or not required by law. The above report was generated using voice recognition software. It may contain grammatical, syntax or spelling errors. Electronically signed by: Andrei Rodríguez M.D. 08/10/2021 1:15 PM SINGLE VIEW CHEST CLINICAL HISTORY: Chest tube removal. FINDINGS: An AP, portable, upright chest radiograph is compared to study performed earlier the same day 08/13/2021. The patient is status post midline sternotomy. A 2-lead cardiac AICD is unchanged in position and partially obscures the left mid chest. The heart is enlarged noting atherosclerotic calcif ication of the thoracic aorta. The pulmonary vasculature is noncongested. A left-sided chest tube is has been removed. Airspace opacities are again seen in the left lower lung. There is trace left pleural effusion. No residual pneumothorax is clearly seen. The skeletal structures are osteopenic. The bony thorax is grossly intact. Subcutaneous gas is seen throughout the left chest wall and in the left lower neck. IMPRESSION: 1. A left-sided chest tube has been removed. No residual pneumothorax is clearly identified. 2. Subcutaneous gas is again seen throughout the left chest wall. 3. Airspace opacities in the left mid to lower lung are unchanged and there is trace left pleural effusion. 4. Cardiomegaly and AICD with no radiographic evidence of congestive failure. ACT 112: Negative or not required by law. Electronically signed by: Dewayne Edwards M.D. 08/13/2021 10:41 AM Hospital Course (1) Pneumothorax, left: 86-year-old male with history of coronary disease status post stent, CHF ejection fraction 25 to 29%, Atrial fibrillation, status post pacemaker placement August 07, severe mitral regurgitation, hypertension, CKD stage III, etc. presenting with shortness of Breath. Postprocedural pneumothorax due to pacemaker insertion Left-sided large hemothorax Status post chest tube placement 08/10/2021 In the setting of pacemaker placement 08/07/2021 Doing well after chest tube placement Repeat chest x-ray showing pneumothorax mostly resolved Hemodynamically stable Pacemaker interrogation performed General surgery following the patient Cardiology service consulted 08/13 doing well overall chest tube removed CXR:1. A left-sided chest tube has been removed. No residual pneumothorax is clearly identified. 2. Subcutaneous gas is again seen throughout the left chest wall. 3. Airspace opacities in the left mid to lower lung are unchanged and t here is trace left pleural effusion. 4. Cardiomegaly and AICD with no radiographic evidence of congestive failure. resume coumadin Coronary disease status post stent placement Denies chest pain or any other cardiac symptoms Continue aspirin, ezetimibe Chronic systolic CHF Ejection fraction 25 to 20% Euvolemic Continue sacubitril/valsartan, Lasix, digoxin, metoprolol per Cardiology, increase Digoxin to 125mcg daily Atrial fibrillation Heart rate controlled Continue metoprolol, eplerenone, digoxin INR 1.2 resume coumadin coumadin clinic notified to ff up patient this week Hypertension Mildly elevated Monitor CKD stage III Stable Disposition d/c home ff up with PCP in 1 week ff up with [employer] in 2 weeks plan of care discussed with patient in detail and at length all questions answered he is understanding, agreeable, comfortable with the plan of care Total Time Total Time Spent Total Time Spent (In Minutes): > 30 minutes Discharge Plan Discharge Items Patient Disposition: Home - Self-Care Reason For Visit: LARGE L PNEUMOTHORAX Discharge Diagnosis: LARGE LEFT PNEUMOTHORAX Activity: Per Instructions section Activity Comment: GRADUALLY TOLERATED, NO HEAVY EXERTION Bathing Comment: keep bandage dry for 3 days Driving/Machine Use: Resume 3 days after discharge Non-emergency contact: Primary Care Provider Call non-emergency contact if: you have any medication questions, your symptoms worsen, your pain is not controlled, your pain is worsening, your pain is unusual for you, your pain is concerning for you and you have a fever Follow-up/Referrals: Elvis Espinal DO [Physician] - (Please call to be seen within 1 week for removal of sutures) Scotty Cummings PA-C [Primary Care Provider] - (Date & Time 08/16/2021 8:40 AM Provider Scotty Cummings PA-C Department General Internal Medicine [facility] ) Diet: Heart Healthy Addtl Attending Provider Instructions: Do not remove the bandage on your chest until Thursday. INCREASE DIGOXIN FROM 62.5 MCG TO 125 MCG DAILY. PLEASE RESUME YOUR OTHER USUAL MEDICATIONS. PLEASE CALL YOUR PRIMARY CARE PHYSICIAN OR RETURN TO THE ER IMMEDIATELY IF WITH WORSENING OF SYMPTOMS, INCLUDING SHORTNESS OF BREATH, CHEST PAIN, PALPITATIONS, DIZZINESS, FEVER/CHILLS, COUGH, ETC. FOLLOW UP WITH PRIMARY CARE PHYSICIAN OUTLINED ABOVE. Pending Studies at Discharge: No Stand-Alone Forms: My [facility], Smoking Cessation Medications and DC Order Prescriptions: New digoxin [Digitek] 125 mcg (0.125 mg) Tablet 125 mcg PO QPM 30 Days Qty: 30 RF: 1 Continued furosemide [Lasix] 40 mg Tablet 40 mg PO QAM RF: 0 furosemide [Lasix] 40 mg Tablet 20 mg PO QPM RF: 0 atorvastatin 80 mg Tablet 80 mg PO QAM RF: 0 allopurinol 100 mg Tablet 100 mg PO QAM RF: 0 warfarin 5 mg Tablet 5 - 7.5 mg PO UD RF: 0 eplerenone [Inspra] 25 mg Tablet 25 mg PO QAM RF: 0 ezetimibe 10 mg Tablet 10 mg PO QAM RF: 0 PreserVision AREDS [id number] Capsule 1 cap PO QAM RF: 0 acetylcarnitine 500 mg Capsule 1,000 mg PO QPM RF: 0 Entresto 97-103 mg Tablet 1 tab PO BID RF: 0 metoprolol succinate [Toprol XL] 50 mg Tablet Extended Release 24 Hr 100 mg PO BID Qty: 0 RF: 0 Discontinued digoxin 125 mcg (0.125 mg) tablet 62.5 mcg PO QPM RF: 0 Discharge Orders: Discharge Order (Routine); Ordered 08/13/21 Ordered By: Jung Laguerre Admission Data Admit Date/Time: 08/10/21 15:49 Attending Provider: Jung Laguerre Admit Provider: Jung Laguerre Primary Care Provider: Scotty Cummings Other Providers: Elvis Esipnal ; Jung Laguerre ; Brent Reyna Other Interventions: Discharge Summary Assessment (RN) Last Done: 08/13/21 14:24
[2021-08-13] MEDS ORDERED: WARFARIN SOD 7.5 MG TAB PO SCH (16:00)
--- NOTE | 2021-08-14 13:44 | Electrocardiogram Report ---
Test Reason : Blood Pressure : / mmHG Vent. Rate : 091 BPM Atrial Rate : 100 BPM P-R Int : 000 ms QRS Dur : 122 ms QT Int : 378 ms P-R-T Axes : 077 -42 083 degrees QTc Int : 464 ms Atrial fibrillation with ventricular paced beats Abnormal ECG When compared with ECG of 11-AUG-2021 05:16, (unconfirmed) Vent. rate has increased BY 2 BPM Confirmed by Leonardo Mars ([id number]) on 08/14/2021 1:43:58 PM Referred By: REFERRED SELF Confirmed By:Leonardo Mars
== END 2021-08-13 16:00 | disposition home or self-care (01) | DRG 982 ==
LOC: ED 12:30 → 2S 15:49

== ENCOUNTER 2022-01-16 13:26 | Inpatient (IN) ==
[2022-01-16] MEDS ORDERED: SODIUM CHLORIDE 0.9% 1000ML 250 ML IV ONE ×2 (13:38→15:59)
[2022-01-16] MEDS ORDERED: EPINEPHrine INJ 1 MG/ML AMP IM STA (13:42)
[2022-01-16] MEDS ORDERED: FAMOTIDINE 20MG IV PUSH 20 MG/5 ML SYR IV STA (13:45)
[2022-01-16] MEDS ORDERED: STAT IV STA (13:46)
--- NOTE | 2022-01-16 13:55 | Emergency Department Note ---
Impression & Plan Anaphylaxis, Urticaria, Swollen tongue ED Provider Note Provider: Hector Mathew MD DATE OF SERVICE: 01/16/2022 CHIEF COMPLAINT: Allergic reaction HISTORY OF PRESENT ILLNESS: Patient is a 86-year-old gentleman past medical history including atrial fibrillation, ischemic cardiomyopathy with pacemaker, pneumothorax presenting here today via EMS from urgent care. Patient states around noon he was at home in his kitchen when he accidentally got stung in his right distal ring finger by a bee. Patient states he began to have allergic reaction symptoms with swelling and itch. States his tongue started to swell and he was having swelling of his lips. Patient denies GI upset or nausea or vomiting. Initially went to urgent care. Evaluated there and EMS was summoned given the severity of the reaction. Patient denies a history of severe allergic reactions in the past. Patient received at this point 2 doses of epi IM epinephrine for a total of 0.5 mg in addition to Solu-Medrol, Benadryl, and a DuoNeb. Patient states he still has some swelling of his tongue and right hand and lips. States the swelling is the same it may be a bit worse but states he is breathing okay. Denies GI upset. Denies any other new adulterants or allergic contacts. REVIEW OF SYSTEMS: A total of 10 review of systems was obtained and negative except as stated above in the HPI. PAST MEDICAL HISTORY: As noted above MEDICATIONS: Reviewed home medication list includes Coumadin for history of A. fib SOCIAL HISTORY: PHYSICAL EXAM: GENERAL: alert and oriented in no acute distress on stretcher Head: normocephalic and atraumatic EYES: No injection, discharge or icterus. PERRL NECK: Trachea midline. Supple. ENT: Mucous membranes pink and moist. Pharynx without erythema or exudate. Ton maribel is significantly swollen with perioral swelling but no stridor. No tonsillar or pharyngeal swelling noted on external exam. LUNGS: Airway patent. No retractions. Breath sounds clear with good air entry bilaterally. HEART: Irregular rate and rhythm. No chest wall tenderness ABDOMEN: Soft and non-tender, without guarding or rebound. SKIN: Acyanotic, warm, dry with diffuse areas of Leivasy area across the abdomen and chest and neck. There is some swelling in each area to the right upper arm as well. EXTREMITIES: Without significant tenderness. There is 2+ lower extremity swelling but compression stockings are in place. The right hand is swollen with pinpoint sting marky on the distal right ring finger. Some mild erythema and rash as noted above. NEUROLOGICAL: No focal deficits. No aphasia. No facial droop or slurred speech. Ambulatory. EK bpm. Predominantly paced rhythm occasional PVC. No acute ST segment elevation appreciated QTC of 475. CONTINUOUS CARDIAC MONITORING: was ordered and showed a heart rate of 90s-100s bpm in abdominally paced rhythm occasional PVCs Patient's laboratory studies and imaging reviewed. Differential includes Allergic reaction, anaphylaxis, urticaria, Jeffrey-Noam syndrome, toxic epidermal necrolysis, erythema multiforme, contact dermatitis, cellulitis, as well as other pathologies. IMPRESSION/MEDICAL DECISION MAKING: Patient with a fairly impressive anaphylactic reaction but likely does not appear to be in shock. Not having significant GI complaints. I received 2 doses of IM epinephrine as well as steroids and Benadryl. Protecting his airway although there is significant lung and lip swelling. We will give some additional IM epinephrine and will order an epinephrine drip given the severity of symptoms. 1 to be careful given his age and comorbidities to not provoke cardiac incident. Given the severity of the reaction do feel that he needs further monitoring here at the hospital. Do not feel he requires emergent i ntubation at this time but will monitor closely. Later information from the urgent care indicate he was noted to be hypotensive there; has been okay here. Improving by the time the epinephrine drip was started to very low dose other than his tongue his symptoms are basically almost entirely resolved. Still with good amount of tongue swelling. Although improved given the severity and risk for rebound we will have the hospitalist observe overnight. Patient without evidence of airway compromise or worsening while here in the emergency department. DIAGNOSIS: Anaphylaxis DISPOSITION: Hospitalist will evaluate Patient was agreeable with this plan. Critical Care I have personally spent 38 minutes of critical care time in the direct management of this patient. This includes bedside care, interpretation of diagnostic studies, and testing, discussion with consultants, patient, and family members, and other required patient management activities. These 38 min utes is in excess of all separately billable procedures. Past Med/Surg History Medical History (Updated 01/16/22 @ 15:52 by Margaret Gaines PA-C) Atrial fibrillation reason for upcoming ICD implant. CAD (coronary artery disease) s/p PCIs to RCA x 2 and LAD x 3, "CABG in 2003 RODRÍGUEZ-LAD, SVG-D2, SVG-Y graft to anterior branch occluded by caht in 06/2019" [facility] cardio Chronic HFrEF (heart failure with reduced ejection fraction) Congestive heart failure EF 25-30% per [facility] cardio records Gout Hyperlipidemia Hypertension Kidney stones Mitral regurgitation moderate Myocardial Infarction On anticoagulant therapy Osteoarthritis Tricuspid regurgitation moderate Surgical History History of arthroscopy Left knee arthroscopy History of cardiac cath x3 (last done about ~2001) [place], [place] History of cataract surgery bilateral History of colonoscopy History of coronary artery bypass graft x2 or x3 vessels at [facility] (~2014) History of heart artery stent total of x3 or 4 stents. 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 Beliefs That Will Affect Care: None marital status: Current Living Situation: Spouse Current Living Situation Comment: LIVES WITH current occupational status: retired How many Children do You have: 1 Feels Safe at Home: Yes Assistive Devices: None Allergies Allergies Allergy/AdvReac Type Severity Reaction Status Date / Time bee venom protein (honey bee) Allergy Severe Anaphylaxis Verified 01/16/22 15:36 Home Meds Home Medications Medication Instructions Recorded Confirmed allopurinol 100 mg tablet 100 mg PO QAM 08/05/21 01/16/22 atorvastatin 80 mg tablet 80 mg PO QAM 08/05/21 01/16/22 eplerenone 25 mg tablet (Inspra) 12.5 mg PO QAM 08/05/21 01/16/22 ezetimibe 10 mg tablet 10 mg PO QAM 08/05/21 01/16/22 furosemide 40 mg tablet (Lasix) 40 mg PO QAM 08/05/21 01/16/22 sacubitril 97 mg-valsartan 103 mg 1 tab PO BID 08/05/21 01/16/22 tablet (Entresto) vitamins A,C,X-[id number]-[id number] 14,320 1 cap PO QAM 08/05/21 01/16/22 unit-226 mg-200 unit capsule (PreserVision AREDS) warfarin 5 mg tablet 2.5 mg PO FR@1600 08/05/21 01/16/22 digoxin 125 mcg (0.125 mg) tablet 62.5 mcg PO QPM 01/16/22 01/16/22 (Digitek) warfarin 5 mg tablet 5 mg PO SUMOTUWETHSA@1600 01/16/22 01/16/22 Previous Rx's Medication Instructions Recorded metoprolol succinate 50 mg 100 mg PO BID #0 tabs 08/07/21 tablet,extended release 24 hr (Toprol XL) Results & Data (ED) Vital Signs Vital Signs - 24 hr 01/16/22 13:07 01/16/22 13:07 01/16/22 13:40 Temperature 36.6 C Temperature Source Oral Pulse Rate 95 H Pulse Rate [Apical] Pulse Rate from SpO2 Sensor Respiratory Rate 16 Blood Pressure 115/63 Blood Pressure [Left Arm] Blood Pressure Mean 80 Blood Pressure Mean [Left Arm] Pulse Oximetry 92 98 Oxygen Delivery Method Room Air Room Air Room Air Sepsis Recent Fever Within 48 Hours No Sepsis New/Unexplained Change in Mental Status No Sepsis Action Taken by Nursing No Action Required 01/16/22 13:07 01/16/22 14:00 01/16/22 14:30 Temperature Temperature Source Pulse Rate 93 H 94 H Pulse Rate [Apical] 92 H Pulse Rate from SpO2 Sensor 96 H Respiratory Rate 16 22 23 Blood Pressure Blood Pressure [Left Arm] 115/56 L Blood Pressure Mean Blood Pressure Mean [Left Arm] 75 Pulse Oximetry 95 97 Oxygen Delivery Method Room Air Room Air Sepsis Recent Fever Within 48 Hours Sepsis New/Unexplained Change in Mental Status Sepsis Action Taken by Nursing 01/16/22 14:46 01/16/22 14:46 01/16/22 15:00 Temperature Temperature Source Pulse Rate 91 H 89 Pulse Rate [Apical] Pulse Rate from SpO2 Sensor 92 H Respiratory Rate 19 20 Blood Pressure 110/63 Blood Pressure [Left Arm] Blood Pressure Mean 78 Blood Pressure Mean [Left Arm] Pulse Oximetry 95 Oxygen Delivery Method Room Air Sepsis Recent Fever Within 48 Hours Sepsis New/Unexplained Change in Mental Status Sepsis Action Taken by Nursing 01/16/22 15:01 01/16/22 15:01 01/16/22 15:30 Temperature Temperature Source Pulse Rate 99 H 100 H Pulse Rate [Apical] Pulse Rate from SpO2 Sensor 97 H Respiratory Rate 19 20 Blood Pressure 112/73 Blood Pressure [Left Arm] Blood Pressure Mean 86 Blood Pressure Mean [Left Arm] Pulse Oximetry 94 Oxygen Delivery Method Room Air Sepsis Recent Fever Within 48 Hours Sepsis New/Unexplained Change in Mental Status Sepsis Action Taken by Nursing 01/16/22 15:31 01/16/22 15:31 01/16/22 16:00 Temperature Temperature Source Pulse Rate 91 H Pulse Rate [Apical] Pulse Rate from SpO2 Sensor 91 H Respiratory Rate 20 Blood Pressure 123/88 127/70 Blood Pressure [Left Arm] Blood Pressure Mean 99 89 Blood Pressure Mean [Left Arm] Pulse Oximetry 94 Oxygen Delivery Method Room Air Sepsis Recent Fever Within 48 Hours Sepsis New/Unexplained Change in Mental Status Sepsis Action Taken by Nursing 01/16/22 16:00 01/16/22 16:30 Temperature Temperature Source Pulse Rate 93 H 95 H Pulse Rate [Apical] Pulse Rate from SpO2 Sensor 96 H 97 H Respiratory Rate 19 18 Blood Pressure Blood Pressure [Left Arm] Blood Pressure Mean Blood Pressure Mean [Left Arm] Pulse Oximetry 96 95 Oxygen Delivery Method Room Air Room Air Sepsis Recent Fever Within 48 Hours Sepsis New/Unexplained Change in Mental Status Sepsis Action Taken by Nursing Laboratory Data Result diagrams: 01/16/22 14:03 01/16/22 14:39 Lab Results 01/16/22 01/16/22 01/16/22 Range/Units 14:03 14:03 14:03 WBC 10.33 (4.8-10.8) K/ul RBC 5.11 (4.63-6.08) M/uL Hgb 15.9 (14.0-18.0) g/dl Hct 47.4 (40.1-51.0) % MCV 92.8 (80.0-100.0) fL MCH 31.1 (25.0-34.0) pg MCHC 33.5 (32.0-36.0) g/dL RDW Std Deviation 49.4 H (36.4-46.3) fL RDW Coeff of Everardo 14.6 H (11.5-14.5) % Plt Count 232 (130-400) K/uL MPV 10.3 (9.4-12.4) fL Immature Gran % (Auto) 0.3 % Neut % (Auto) 71.4 % Lymph % (Auto) 20.6 % [place] % (Auto) 6.9 % Eos % (Auto) 0.4 % Baso % (Auto) 0.4 % Neut # (Auto) 7.38 H (1.4-6.5) K/uL Lymph # (Auto) 2.13 (1.2-3.4) K/uL [place] # (Auto) 0.71 (0.24-0.82) K/uL Eos # (Auto) 0.04 (0-0.50) K/uL Baso # (Auto) 0.04 (0-0.2) K/uL Immature Gran # (Auto) 0.03 H (0.00-0.02) K/uL PT 37.5 H (9.0-12.0) Seconds INR 3.8 H (0.9-1.1) APTT 36.4 H (21.0-31.0) Seconds PTT Ratio 1.3 Sodium Cancelled Potassium Cancelled Chloride Cancelled Carbon Dioxide Cancelled Anion Gap Cancelled BUN Cancelled Creatinine Cancelled Est Cr Clr Drug Dosing Cancelled Est GFR ( Amer) Cancelled Est GFR (Non-Af Amer) Cancelled BUN/Creatinine Ratio Cancelled Glucose Cancelled Calcium Cancelled Total Bilirubin Cancelled AST Cancelled ALT Cancelled Alkaline Phosphatase Cancelled Troponin I High Sens Cancelled Total Protein Cancelled Albumin Cancelled Globulin Cancelled Albumin/Globulin Ratio Cancelled Digoxin SARS-CoV-2, RNA, NAAT (NEGATIVE) 01/16/22 01/16/22 01/16/22 Range/Units 14:03 14:39 14:39 WBC (4.8-10.8) K/ul RBC (4.63-6.08) M/uL Hgb (14.0-18.0) g/dl Hct (40.1-51.0) % MCV (80.0-100.0) fL MCH (25.0-34.0) pg MCHC (32.0-36.0) g/dL RDW Std Deviation (36.4-46.3) fL RDW Coeff of Everardo (11.5-14.5) % Plt Count (130-400) K/uL MPV (9.4-12.4) fL Immature Gran % (Auto) % Neut % (Auto) % Lymph % (Auto) % [place] % (Auto) % Eos % (Auto) % Baso % (Auto) % Neut # (Auto) (1.4-6.5) K/uL Lymph # (Auto) (1.2-3.4) K/uL [place] # (Auto) (0.24-0.82) K/uL Eos # (Auto) (0-0.50) K/uL Baso # (Auto) (0-0.2) K/uL Immature Gran # (Auto) (0.00-0.02) K/uL PT (9.0-12.0) Seconds INR (0.9-1.1) APTT (21.0-31.0) Seconds PTT Ratio Sodium 142 Potassium 3.3 L Chloride 107 Carbon Dioxide 25 Anion Gap 10 BUN 26 H Creatinine 1.34 Est Cr Clr Drug Dosing 51.8 Est GFR ( Amer) 55.6 Est GFR (Non-Af Amer) 48.0 BUN/Creatinine Ratio 19.4 Glucose 137 H Calcium 9.0 Total Bilirubin 0.9 AST 18 ALT 15 Alkaline Phosphatase 44 Troponin I High Sens 9.9 Total Protein 6.0 Albumin 3.9 Globulin 2.1 L Albumin/Globulin Ratio 1.9 Digoxin Cancelled 0.6 L SARS-CoV-2, RNA, NAAT (NEGATIVE) 01/16/22 Range/Units 14:49 WBC (4.8-10.8) K/ul RBC (4.63-6.08) M/uL Hgb (14.0-18.0) g/dl Hct (40.1-51.0) % MCV (80.0-100.0) fL MCH (25.0-34.0) pg MCHC (32.0-36.0) g/dL RDW Std Deviation (36.4-46.3) fL RDW Coeff of Everardo (11.5-14.5) % Plt Count (130-400) K/uL MPV (9.4-12.4) fL Immature Gran % (Auto) % Neut % (Auto) % Lymph % (Auto) % [place] % (Auto) % Eos % (Auto) % Baso % (Auto) % Neut # (Auto) (1.4-6.5) K/uL Lymph # (Auto) (1.2-3.4) K/uL [place] # (Auto) (0.24-0.82) K/uL Eos # (Auto) (0-0.50) K/uL Baso # (Auto) (0-0.2) K/uL Immature Gran # (Auto) (0.00-0.02) K/uL PT (9.0-12.0) Seconds INR (0.9-1.1) APTT (21.0-31.0) Seconds PTT Ratio Sodium Potassium Chloride Carbon Dioxide Anion Gap BUN Creatinine Est Cr Clr Drug Dosing Est GFR ( Amer) Est GFR (Non-Af Amer) BUN/Creatinine Ratio Glucose Calcium Total Bilirubin AST ALT Alkaline Phosphatase Troponin I High Sens Total Protein Albumin Globulin Albumin/Globulin Ratio Digoxin SARS-CoV-2, RNA, NAAT NEGATIVE (NEGATIVE) Administered Medications Epinephrine HCl 4 mg/ Sodium (Chloride) 254 mls @ 8.169 mls/hr IV .Q24H MINO; Protocol Stop: 02/15/22 13:59 Last Admin: 01/16/22 14:24 Dose: 0.02 mcg/kg/min, 8.2 mls/hr Documented By: CAMRON Sodium Chloride (Nss 1000ml) 250 mls @ 125 mls/hr IV .Q2H ONE Stop: 01/16/22 17:58 Last Admin: 01/16/22 16:17 Dose: 125 mls/hr Documented By: ANA Potassium Chloride (K Juan / Wtr) 10 meq in 100 mls @ 100 mls/hr IV Q1H MINO Stop: 01/16/22 20:14 Last Admin: 01/16/22 16:17 Dose: 100 mls/hr Documented By: ANA Discontinued Medications Epinephrine HCl (Epinephrine Inj 1 Mg/Ml Amp) 0.3 mg IM NOW STA Stop: 01/16/22 13:43 Last Admin: 01/16/22 14:01 Dose: 0.3 mg Documented By: ML Sodium Chloride (Nss 1000ml) 250 mls @ 999 mls/hr IV .Q16M ONE Stop: 01/16/22 13:53 Last Infusion: 01/16/22 14:42 Dose: 0 mls/hr Documented By: Admin: 01/16/22 14:00 Dose: 999 mls/hr Documented By: JOHNNA Famotidine (Pepcid 20mg Iv Push) 20 mg in 5 mls @ 2.5 mls/min IV NOW STA Stop: 01/16/22 13:46 Last Admin: 01/16/22 14:01 Dose: 2.5 mls/min Documented By: JOHNNA Miscellaneous (Stat Iv) 1 each N/A NOW STA Stop: 01/16/22 13:47 Last Admin: 01/16/22 14:27 Dose: Not Given Documented By: CAMRON Discharge Plan Visit Data Chief Complaint: Allergic Reaction Stated Complaint: Allergic Reaction ED Provider: Hector Mathew Discharge Problem: Anaphylaxis, Urticaria, Swollen tongue Patient Disposition: Being Evaluated by Hospitalist Forms Stand Alone Forms: [facility] Prescriptions Prescriptions: No Action warfarin 5 mg tablet 5 mg PO SUMOTUWETHSA@1600 digoxin [Digitek] 125 mcg (0.125 mg) tablet 62.5 mcg PO QPM furosemide [Lasix] 40 mg Tablet 40 mg PO QAM atorvastatin 80 mg Tablet 80 mg PO QAM allopurinol 100 mg Tablet 100 mg PO QAM warfarin 5 mg Tablet 2.5 mg PO FR@1600 eplerenone [Inspra] 25 mg Tablet 12.5 mg PO QAM ezetimibe 10 mg Tablet 10 mg PO QAM PreserVision AREDS [id number] Capsule 1 cap PO QAM Entresto 97-103 mg Tablet 1 tab PO BID metoprolol succinate [Toprol XL] 50 mg Tablet Extended Release 24 Hr 100 mg PO BID Qty: 0 0RF Referrals Referrals: Scotty Cummings PA-C [Primary Care Provider] - : Anaphylaxis Qualifiers: Encounter type: initial encounter Qualified Code(s): T78.2XXA - Anaphylactic shock, unspecified, initial encounter
[2022-01-16 14:16] LABS: Basophils # (auto) 0.04 K/uL (0-0.2); Basophils % (auto) 0.4 %; Eosinophils # (auto) 0.04 K/uL (0-0.50); Eosinophils % (auto) 0.4 %; Hematocrit (blood only) 47.4 % (40.1-51.0); Hemoglobin 15.9 g/dl (14.0-18.0); Immature Granulocytes # (auto) 0.03 K/uL (0.00-0.02); Immature Granulocytes % (auto) 0.3 %; Lymphocytes # (auto) 2.13 K/uL (1.2-3.4); Lymphocytes % (auto) 20.6 %; Mean Corpuscular Hemoglobin 31.1 pg (25.0-34.0); Mean Corpuscular Hgb Conc 33.5 g/dL (32.0-36.0); Mean Corpuscular Volume 92.8 fL (80.0-100.0); Mean Platelet Volume 10.3 fL (9.4-12.4); Monocytes # (auto) 0.71 K/uL (0.24-0.82); Monocytes % (auto) 6.9 %; Neutrophils # (auto) 7.38 K/uL (1.4-6.5); Neutrophils % (auto) 71.4 %; Platelet Count 232 K/uL (130-400); RDW Coefficient of Variation 14.6 % (11.5-14.5); RDW Standard Deviation 49.4 fL (36.4-46.3); Red Blood Count 5.11 M/uL (4.63-6.08); White Blood Count 10.33 K/ul (4.8-10.8)
[2022-01-16 14:49] LABS: INR 3.8 (0.9-1.1); Partial Thromboplastin Ratio 1.3; Partial Thromboplastin Time 36.4 Seconds (21.0-31.0); Prothrombin Time 37.5 Seconds (9.0-12.0)
[2022-01-16 15:22] LABS: Troponin I High Sensitivity 9.9 pg/ml (0-20)
[2022-01-16 15:29] LABS: Albumin Globulin Ratio 1.9 (0.9-2); Albumin Level 3.9 gm/dl (3.4-5.0); BUN Creatinine Ratio 19.4 (10-20); Bilirubin,Total 0.9 mg/dl (0.2-1.0); Creatinine Clr Calc Pharmacy 51.8 ml/min; Est GFR (African American) 55.6 ml/min; Globulin 2.1 gm/dl (2.5-4.0); Potassium 3.3 mmol/L (3.5-5.1)
--- NOTE | 2022-01-16 15:33 | History & Physical Report ---
Date of Service January 16, 2022 Assessment & Plan (1) Anaphylaxis: (2) Urticaria: (3) CAD (coronary artery disease): (4) Chronic HFrEF (heart failure with reduced ejection fraction): (5) Ischemic cardiomyopathy: (6) Permanent atrial fibrillation: Plan This is an 86-year-old male who has a significant past medical history of chronic HFrEF EF 35%, status post pacemaker and defibrillator, CAD with history of angioplasty and CABG x2, permanent atrial fibrillation anticoagulated on warfarin, HTN, HLD, LBBB and CKD stage III who presents to ER after being stung by bee and having anaphylactic reaction. Patient received 125 mg of IV Solu-Medrol, 50 mg of Benadryl, IM epinephrine x3, nebulized albuterol and is currently on epi drip. He has made improvements thus far but continues to have angioedema. Tolerating Secretions. VSS. Anaphylactic reaction to bee sting Angioedema Urticaria Admit to ICU for observation while on epi drip continue solumedrol 40mg IV q8 Pepcid 20mg IV BID Benadryl IV 12.5mg BID dysphagia screen, place on clears if passes continue epi gtt - to be managed per actuary Consult Dr. 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 in regards to volume/renal function daily weight strict I and O low sodium/ heart healthy diet echocardiogram 01/13/22 revealed EF 35%, mildly diffuse left ventricular hypokinesis, right ventricle moderately dilated with preserved right ventricular systolic function, AV sclerosis, mild MR, mild TR Chronic A-fib Supratherapeutic INR continue metoprolol, eplerenon, dig hold warfarin, home regimen 2.5mg Fr and 5mg all other days daily INR had pacer check on 01/13 - revealed afib, with 2 VTach episodes Hypokalemia will replete with 4 - 10meq KCL K riders IV CKD -3 baseline cr 1.1-1.2 bun/cr 26 and 1.34 will hold lasix for now received 250ml IVF in ED, will give additional 250ml IVF after discussing with Dr. Loyd follow renal fxn, avoid nephrotoxic agents DVT ppx: warfarin FULL CODE Dispo: ICU while on epi gtt PCP: Scotty Cummings PA-C Pt was seen and examined in collaboration with Dr. White, please see addendum History of Present Illness Chief Complaint: Anaphylaxis prior to arrival Primary Care Provider: Scotty Cummings PA-C This is an 86-year-old male who has a significant past medical history of chronic HFrEF EF 35%, status post pacemaker and defibrillator, CAD with history of angioplasty and CABG x2, permanent atrial fibrillation anticoagulated on warfarin, HTN, HLD, LBBB and CKD stage III who presents to ER after being stung by bee and having anaphylactic reaction. He denies ever having anaphylactic reaction in the past. He states around noon he was stung by a bee on his right fourth finger. He then started noticing swelling of his hand and he could feel the, "then I am going up his arm." He also noted a rash to his abdomen and tongue swelling. He presented to [facility]. He was hypotensive there with a blood pressure of 82/62. EMS was summoned due to concern for anaphylactic shock. Patient did receive 125 mg of Solu-Medrol, 50 mg of Benadryl, 0.3 mg of IM epinephrine as well as albuterol. He was transported to ED. In ED he continued to have angioedema, tongue swelling and rash. He was then administered an additional 0.3 mg IM epinephrine, IV fluid and was eventually placed on epi drip. After being placed on epi drip his symptoms did start to improve. Currently he continues to have lip and tongue swelling. He otherwise denies any fever, chills, sweats, lightheadedness, dizziness, chest pain, shortness breath, cough, nausea, vomiting, abdominal pain, change in bowel or urinary habits. He has been compliant with his medications. Allergies Allergy/AdvReac Type Severity Reaction Status Date / Time bee venom protein (honey bee) Allergy Severe Anaphylaxis Verified 01/16/22 15:36 Home Medications Medication Instructions Recorded Confirmed Type allopurinol 100 mg tablet 100 mg PO QAM 08/05/21 01/16/22 History atorvastatin 80 mg tablet 80 mg PO QAM 08/05/21 01/16/22 History eplerenone 25 mg tablet (Inspra) 12.5 mg PO QAM 08/05/21 01/16/22 History ezetimibe 10 mg tablet 10 mg PO QAM 08/05/21 01/16/22 History furosemide 40 mg tablet (Lasix) 40 mg PO QAM 08/05/21 01/16/22 History sacubitril 97 mg-valsartan 103 mg 1 tab PO BID 08/05/21 01/16/22 History tablet (Entresto) vitamins A,C,P-rsbr-lurbtf 14,320 1 cap PO QAM 08/05/21 01/16/22 History unit-226 mg-200 unit capsule (PreserVision AREDS) warfarin 5 mg tablet 2.5 mg PO FR@1600 08/05/21 01/16/22 History metoprolol succinate 50 mg 100 mg PO BID #0 tabs 08/07/21 01/16/22 Rx tablet,extended release 24 hr (Toprol XL) digoxin 125 mcg (0.125 mg) tablet 62.5 mcg PO QPM 01/16/22 01/16/22 History (Digitek) warfarin 5 mg tablet 5 mg PO SUMOTUWETHSA@1600 01/16/22 01/16/22 History epinephrine 0.3 mg/0.3 mL 0.3 mg (0.3 mL) IM UD PRN 01/17/22 Rx injection, auto-injector (EpiPen anaphylaxis #2 ea 2-Lul) Past Med/Surg History Medical History (Updated 01/16/22 @ 15:52 by Margaret Gaines PA-C) Atrial fibrillation reason for upcoming ICD implant. CAD (coronary artery disease) s/p PCIs to RCA x 2 and LAD x 3, "CABG in 2003 RODRÍGUEZ-LAD, SVG-D2, SVG-Y graft to anterior branch occluded by caht in 06/2019" [facility] cardio Chronic HFrEF (heart failure with reduced ejection fraction) Congestive heart failure EF 25-30% per [facility] cardio records Gout Hyperlipidemia Hypertension Kidney stones Mitral regurgitation moderate Myocardial Infarction On anticoagulant therapy Osteoarthritis Tricuspid regurgitation moderate Surgical History History of arthroscopy Left knee arthroscopy History of cardiac cath x3 (last done about ~2001) [place], [place] History of cataract surgery bilateral History of colonoscopy History of coronary artery bypass graft x2 or x3 vessels at [facility] (~2014) History of heart artery stent total of x3 or 4 stents. History of herniorrhaphy inguinal hernia repair History of lithotripsy History of removal of calculus of renal pelvis through percutaneous nephrostomy Family History Other No family history of adverse response to anesthesia No significant family history Social History (Updated 01/16/22 @ 18:47 by Margaret Gaines PA-C) Smoking Status: Never smoker Second Hand Exposure: No; Hx Alcohol Use: Yes Alcohol type: wine Alcohol type Comment: 2-3 glasses per night Hx Substance Use: No Preferred Language: Bengali Communication Ability: Effective Tour Sales Representative Required: No Beliefs That Will Affect Care: None marital status: Current Living Situation: Alone Current Living Situation Comment: spouse currently in fpc, son lives close in [place] current occupational status: retired How many Children do You have: 1 Feels Safe at Home: Yes Assistive Devices: Denture - Upper, Denture - Lower and Glasses Review of Systems Review of Systems: All systems reviewed & are unremarkable except as noted in HPI & below Physical Exam Physical Exam: Constitutional: WD/WN, [place], M, vitals as above, NAD, sitting up in bed, pleasant, conversing easily Head: Normocephalic, Atraumatic Eyes: PERRL, conjunctivae normal, anicteric sclerae ENMT: external ear and nose normal, +angioedema, tongue swelling, no drooling Neck: trachea midline, no thyromegaly normal visual inspection Respiratory: normal respiratory effort, lungs clear to auscultation, no wheeze, rales, rhonchi. Normal insp/exp effort, no accessory muscle use Cardiovascular: IRR/IRR, no murmur, no edema Vessels: no JVD or carotid bruit Chest: normal inspection of chest Abdomen: normal bowel sounds, soft, nontender, no hepatosplenomegaly Musculoskeletal: no cyanosis or clubbing, extremities motor strength 5/5 Skin: no rashes, warm and dry normal turgor Neurologic: PERRL, EOMI, accommodation nl, no face palsy, no dysarthria CN's II-XI intact bilaterally and moves all extremities Psychiatric: A+Ox3, euthymic affect Lymphatic: no cervical or axillary lymphadenopathy : deferred Results & Data Results & Data ([place]) Vital Signs (Past 12 Hours) Vital Signs Temp Pulse Pulse Resp BP BP Pulse Ox 01/16/22 14:46 91 H 19 95 01/16/22 14:46 110/63 01/16/22 14:30 94 H 23 97 01/16/22 14:00 93 H 22 01/16/22 13:07 92 H 16 115/56 L 95 01/16/22 13:40 98 01/16/22 13:07 01/16/22 13:07 36.6 C 95 H 16 115/63 92 O2 Del Method 01/16/22 14:46 Room Air 01/16/22 14:46 01/16/22 14:30 Room Air 01/16/22 14:00 01/16/22 13:07 Room Air 01/16/22 13:40 Room Air 01/16/22 13:07 Room Air 01/16/22 13:07 Room Air Medications Administered Medication List Epinephrine HCl 4 mg/ Sodium (Chloride) 254 mls @ 8.169 mls/hr IV .Q24H [facility]; Protocol Stop: 02/15/22 13:59 Last Admin: 01/16/22 14:24 Dose: 0.02 mcg/kg/min, 8.2 mls/hr Documented By: CAMRON Discontinued Medications Epinephrine HCl (Epinephrine Inj 1 Mg/Ml Amp) 0.3 mg IM NOW STA Stop: 01/16/22 13:43 Last Admin: 01/16/22 14:01 Dose: 0.3 mg Documented By: JOHNNA Sodium Chloride (Nss 1000ml) 250 mls @ 999 mls/hr IV .Q16M ONE Stop: 01/16/22 13:53 Last Infusion: 01/16/22 14:42 Dose: 0 mls/hr Documented By: Admin: 01/16/22 14:00 Dose: 999 mls/hr Documented By: JOHNNA Famotidine (Pepcid 20mg Iv Push) 20 mg in 5 mls @ 2.5 mls/min IV NOW STA Stop: 01/16/22 13:46 Last Admin: 01/16/22 14:01 Dose: 2.5 mls/min Documented By: JOHNNA Miscellaneous (Stat Iv) 1 each N/A NOW STA Stop: 01/16/22 13:47 Last Admin: 01/16/22 14:27 Dose: Not Given Documented By: CAMRON ECG Rate (beats per minute): 95 Findings: + paced rhythm COVID-19 Results Results COVID-19 Adm Lab Results: RBC 4.30 M/uL (4.63-6.08) L 01/17/22 WBC 6.45 K/ul (4.8-10.8) 01/17/22 Hgb 13.6 g/dl (14.0-18.0) L 01/17/22 Hct 40.3 % (40.1-51.0) 01/17/22 Plt Count 168 K/uL (130-400) 01/17/22 Neutrophils (%) (Auto) 87.4 % 01/17/22 Lymphocytes (%) (Auto) 9.5 % 01/17/22 Monocytes # (Auto) 0.15 K/uL (0.24-0.82) L 01/17/22 Eosinophils # (Auto) 0.00 K/uL (0-0.50) 01/17/22 Immature Granulocyte % (Auto) 0.6 % 01/17/22 Neutrophils # (Auto) 5.64 K/uL (1.4-6.5) 01/17/22 Lymphocytes # (Auto) 0.61 K/uL (1.2-3.4) L 01/17/22 Monocytes # (Auto) 0.15 K/uL (0.24-0.82) L 01/17/22 Eosinophils # (Auto) 0.00 K/uL (0-0.50) 01/17/22 Basophils # (Auto) 0.01 K/uL (0-0.2) 01/17/22 Immature Granulocyte # (Auto) 0.04 K/uL (0.00-0.02) H 01/17 Na 138 mmol/L (136-145) 01/17/22 K 4.0 mmol/L (3.5-5.1) 01/17/22 Cl 108 mmol/L (98-107) H 01/17/22 CO2 22 mmol/L (21-32) 01/17/22 Anion Gap 8 (3-11) 01/17/22 BUN 26 mg/dl (6-23) H 01/17/22 Creatinine 1.00 mg/dl (0.6-1.4) 01/17/22 BUN/Creatinine Ratio 26.0 (10-20) H 01/17/22 Glucose Level 156 mg/dl (70-99(Fasting)) H 01/17/22 Ca 8.4 mg/dl (8.5-10.1) L 01/17/22 Phosphorus Level 2.6 mg/dl (2.5-4.9) 01/16/22 Total Bilirubin 0.9 mg/dl (0.2-1.0) 01/17/22 AST/SGOT 16 U/L (13-39) 01/17/22 ALT/SGPT 13 U/L (7-52) 01/17/22 Alkaline Phosphatase 37 U/L (34-104) 01/17/22 Total Protein 5.5 gm/dl (6.0-8.3) L 01/17/22 Albumin 3.5 gm/dl (3.4-5.0) 01/17/22 Globulin 2.0 gm/dl (2.5-4.0) L 01/17/22 Albumin/Globulin Ratio 1.8 (0.9-2) 01/17/22 PTT 36.4 Seconds (21.0-31.0) H 01/16/22 INR 3.7 (0.9-1.1) H 01/17/22 SARS-CoV-2, RNA, NAAT NEGATIVE (NEGATIVE) 01/16/22 Chest X-Ray 01/16/22 Code Status & VTE Plan Code Status FULL CODE Supervising Physician Co-Signing Physician Notes Pt was seen and examined. Agreed with Margaret CHÁVEZ exam, assessment and plan. 86-year-old male who has a significant past medical history of chronic HFrEF EF 35%, status post pacemaker and defibrillator, CAD with history of angioplasty and CABG x2, permanent atrial fibrillation anticoagulated on warfarin, HTN, HLD, LBBB and CKD stage III presented to the ER after being stung by bee in his 4th finger and having anaphylactic reaction. Pt said that his finger started to swelling then his hand and arm. He said he noticed a rash and swelling in his abdomen, then his tongue started to feel swelling. He went to the Urgent care and was found to be hypotensive. EMS was called and was brought to the ED due to concern of anaphylactic shock/angioedema. received IV soumedrol 125mg, Benadryl and IM epinephrine en route. In the ER he was started on epinephrine drip. His vital was stable and denies any SOB. We discussed to actuary about to keep him to the ICU under observation to monitor for airway compromise. Epinephrine drip will be managed by the actuary. Will continue IV solumedrol 40mg IV q8h, IV benadryl 12.5mg BID and Famotidine IB BID. Will monitor closely. MD Cindy (1) Anaphylaxis Encounter type: initial encounter Qualified Code(s): T78.2XXA - Anaphylactic shock, unspecified, initial encounter
[2022-01-16] MEDS ORDERED: POTASSIUM CHLORIDE / WTR 10 MEQ/100 ML PLCT IV SCH (15:45)
--- NOTE | 2022-01-16 16:00 | Critical Care Consultation ---
Date of Consultation January 16, 2022 Assessment & Plan (1) Chronic HFrEF (heart failure with reduced ejection fraction): (2) CAD (coronary artery disease): (3) Anaphylaxis: (4) Permanent atrial fibrillation: Plan Reason Critically Ill: 86-year-old male with past medical history of CHF s/p AICD, coronary artery disease s/p CABG, A. fib on warfarin, CKD stage III presented to the hospital s/p bee sting. Was found to be hypotensive. Did get epinephrine x3 IM in the ER still hypotensive and thus was started on epinephrine drip. Patient sent to the ICU for further management Chest x-ray 01/16/2022 personally reviewed: Portable film, good inspiratory effort, bilateral costophrenic and cardiophrenic angles are clean, AICD in place, no clear lung infiltrate appreciated Neuro - [facility] ICU: Negative Cardiac - --Shock Anaphylaxis s/p bee sting Did get epinephrine IM x3 in the ER Had to be started on drip --Systolic plus diastolic CHF s/p AICD 2D echo 05/27/2021: EF 25-30%, grade 3 diastolic dysfunction, moderate MR, moderate TR severe biatrial enlargement Respiratory - --Mild angioedema Maintaining oral airway with no secretions Continue to monitor GI - No issues RENAL/LYTES - -- PARK on CKD Continue to monitor BUNs/creatinine Avoid nephrotoxic medication - No issues ENDO - ICU hypoglycemia protocol HEME - --Supratherapeutic INR Hold anticoagulation Monitor H&H ID - No signs of infection --Prophylaxis VTE: IPC GI: Pantoprazole Lines: Peripheral Diet: N.p.o. Plan: Potassium being replaced Will give another 250 mL of IV fluid We will try to titrate off epinephrine drip. Can give cardiorenal diet if patient is able to swallow without any issues Monitor for any signs of respiratory compromise. Please note the above document was generated using voice recognition software. It may contain grammatical, syntax or spelling errors.Any formal questions or concerns about the content, text or information contained within the body of this dictation should be directly addressed to the provider for clarification. History of Present Illness History of Present Illness 86-year-old male presented to hospital status post bee sting hypotensive Past medical history of CHF s/p AICD, coronary artery disease s/p CABG, A. fib on warfarin, CKD stage III, dyslipidemia, left bundle branch block In the ED patient with IM epi x3, Solu-Medrol 125 mg, 50 mg of Benadryl but was still hypotensive and thus was started on epinephrine drip. He was sent to the ICU for further management At the time of examination patient said that he was feeling better He was saturating well on room air. Denied any chest pain, no slurring of speech No difficulty swallowing. Denied any chest congestion. No dizziness, no palpitation, no diaphoresis. No nausea or vomiting. Social history: Lifetime non-smoker Allergies Allergy/AdvReac Type Severity Reaction Status Date / Time bee venom protein (honey bee) Allergy Severe Anaphylaxis Verified 01/16/22 15:36 Home Medications Medication Instructions Recorded Confirmed Type allopurinol 100 mg tablet 100 mg PO QAM 08/05/21 01/16/22 History atorvastatin 80 mg tablet 80 mg PO QAM 08/05/21 01/16/22 History eplerenone 25 mg tablet (Inspra) 12.5 mg PO QA 08/05/21 01/16/22 History ezetimibe 10 mg tablet 10 mg PO QAM 08/05/21 01/16/22 History furosemide 40 mg tablet (Lasix) 40 mg PO QAM 08/05/21 01/16/22 History sacubitril 97 mg-valsartan 103 mg 1 tab PO BID 08/05/21 01/16/22 History tablet (Entresto) vitamins A,C,U-rmtq-lunxmi 14,320 1 cap PO QAM 08/05/21 01/16/22 History unit-226 mg-200 unit capsule (PreserVision AREDS) warfarin 5 mg tablet 2.5 mg PO FR@1600 08/05/21 01/16/22 History metoprolol succinate 50 mg 100 mg PO BID #0 tabs 08/07/21 01/16/22 Rx tablet,extended release 24 hr (Toprol XL) digoxin 125 mcg (0.125 mg) tablet 62.5 mcg PO QPM 01/16/22 01/16/22 History (Digitek) warfarin 5 mg tablet 5 mg PO SUMOTUWETHSA@1600 01/16/22 01/16/22 History Patient History Medical History (Updated 01/16/22 @ 15:52 by Margaret Gaines PA-C) Atrial fibrillation reason for upcoming ICD implant. CAD (coronary artery disease) s/p PCIs to RCA x 2 and LAD x 3, "CABG in 2003 RODRÍGUEZ-LAD, SVG-D2, SVG-Y graft to anterior branch occluded by caht in 06/2019" [facility] cardio Chronic HFrEF (heart failure with reduced ejection fraction) Congestive heart failure EF 25-30% per [facility] cardio records Gout Hyperlipidemia Hypertension Kidney stones Mitral regurgitation moderate Myocardial Infarction On anticoagulant therapy Osteoarthritis Tricuspid regurgitation moderate Surgical History History of arthroscopy Left knee arthroscopy History of cardiac cath x3 (last done about ~2001) [place], [place] History of cataract surgery bilateral History of colonoscopy History of coronary artery bypass graft x2 or x3 vessels at [facility] (~2014) History of heart artery stent total of x3 or 4 stents. History of herniorrhaphy inguinal hernia repair History of lithotripsy History of removal of calculus of renal pelvis through percutaneous nephrostomy Family History Other No family history of adverse response to anesthesia No significant family history Social History Smoking Status: Never smoker Second Hand Exposure: No; Hx Alcohol Use: Yes Alcohol type: wine Hx Substance Use: No Preferred Language: Yi Communication Ability: Effective Thread Roller Required: No Beliefs That Will Affect Care: None marital status: Current Living Situation: Spouse Current Living Situation Comment: LIVES WITH current occupational status: retired How many Children do You have: 1 Feels Safe at Home: Yes Assistive Devices: None Review of Systems Review of Systems: All systems reviewed & are unremarkable except as noted in HPI & below Physical Exam Physical Exam: Constitutional: No acute distress HEENT: EOMI, PERRLA Respiratory system: Good air entry bilaterally, no wheeze, no rhonchi, mild crackles left lower lobe CVS: S1-S2 positive, no murmurs or gallops, left-sided AICD, accentuated P2 Abdomen: Soft, nontender, nondistended, positive bowel sounds x4 Extremities: +2 pulses bilaterally radialis/ dorsalis pedis, no cyanosis, +2 pitting edema bilateral lower extremity Neuro: Awake alert oriented x3 Psych: Normal mood and affect G/U: No Lange Skin: no rashes, warm and dry Lymphatic: no cervical or axillary lymphadenopathy Results & Data Results & Data ([facility]) Vital Signs (Past 12 Hours) Vital Signs Temp Pulse Pulse Resp BP BP Pulse Ox 01/16/22 15:31 123/88 01/16/22 15:31 91 H 20 94 01/16/22 15:30 100 H 20 01/16/22 15:01 99 H 19 94 01/16/22 15:01 112/73 01/16/22 15:00 89 20 01/16/22 14:46 91 H 19 95 01/16/22 14:46 110/63 01/16/22 14:30 94 H 23 97 01/16/22 14:00 93 H 22 01/16/22 13:07 92 H 16 115/56 L 95 01/16/22 13:40 98 01/16/22 13:07 01/16/22 13:07 36.6 C 95 H 16 115/63 92 O2 Del Method 01/16/22 15:31 01/16/22 15:31 Room Air 01/16/22 15:30 01/16/22 15:01 Room Air 01/16/22 15:01 01/16/22 15:00 01/16/22 14:46 Room Air 01/16/22 14:46 01/16/22 14:30 Room Air 01/16/22 14:00 01/16/22 13:07 Room Air 01/16/22 13:40 Room Air 01/16/22 13:07 Room Air 01/16/22 13:07 Room Air Laboratory Results 01/16/22 14:03 01/16/22 14:39 Coding Level of Care Code 03121 Inpt Consult Level 5 Diagnoses Chronic HFrEF (heart failure with reduced ejection fraction) I50.22 CAD (coronary artery disease) I25.10 Anaphylaxis T78.2XXA Encounter type: initial encounter Permanent atrial fibrillation I48.21 (1) Anaphylaxis Encounter type: initial encounter Qualified Code(s): T78.2XXA - Anaphylactic shock, unspecified, initial encounter
[2022-01-16] MEDS: POTASSIUM CHLORIDE / WTR 10 MEQ/100 ML PLCT IV SCH ×4 (16:17→20:30)
--- NOTE | 2022-01-16 16:41 | Electrocardiogram Report ---
Test Reason : Blood Pressure : / mmHG Vent. Rate : 095 BPM Atrial Rate : 090 BPM P-R Int : 000 ms QRS Dur : 134 ms QT Int : 378 ms P-R-T Axes : 000 011 240 degrees QTc Int : 475 ms Poor data quality, interpretation may be adversely affected Atrial fibrillation with demand ventricular pacing and fusion beats Ventricular-paced rhythm Abnormal ECG When compared with ECG of 12-AUG-2021 06:18, Electronic ventricular pacemaker has replaced Atrial fibrillation Confirmed by Ang Vanegas ([id number]) on 01/16/2022 4:41:09 PM Referred By: REFERRED SELF Confirmed By:Ruel Vanegas
[2022-01-16 16:59] LABS: Magnesium 1.8 mg/dl (1.7-2.4); Phosphorus 2.6 mg/dl (2.5-4.9)
--- NOTE | 2022-01-16 17:23 | XRay Report ---
SINGLE VIEW CHEST CLINICAL HISTORY: Anaphylaxis FINDINGS: An AP, portable, upright chest radiograph is compared to study dated 08/13/2021. The patient is status post midline sternotomy. A 2-lead cardiac AICD is unchanged in position. The heart is enlar ged noting atherosclerotic calcification of the thoracic aorta. The pulmonary vasculature is nonconge sted. Chronic interstitial thickening some of the previous. Scarring/atelectasis is noted at the lung bases PA The lungs and pleural spaces are otherwise clear. No pneumothorax is seen. The skeletal str uctures are osteopenic. The bony thorax is grossly intact. IMPRESSION: 1. Cardiomegaly and AICD without radiographic evidence of congestive failure. 2. No airspace consolidation or pleural effusion is identified. ACT 112: Negative or not required by law. Electronically signed by: Dewayne Edwards M.D. 01/16/2022 5:22 PM
[2022-01-16] MEDS ORDERED: ICU PROTOCOL FOR HYPERGLYCEMIA PRN (18:44)
[2022-01-16] MEDS ORDERED: ALBUT/IPRATROP 3MG/0.5MG NEB 3 ML VIAL INH PRN (18:44)
[2022-01-16] MEDS: diphenhydrAMINE 50 MG/ML VIAL IV SCH (21:39)
[2022-01-16] MEDS: METOPROLOL SUCC 50MG EXT REL TAB PO SCH (21:40)
[2022-01-16] MEDS: DIGOXIN 0.125 MG TAB PO SCH (21:41)
[2022-01-16] MEDS: FAMOTIDINE 20 MG in SYRINGE 3 ML IV SCH (21:41)
[2022-01-16] MEDS: VALSARTAN/SACUBITRIL 103/97MG TAB PO SCH (21:42)
[2022-01-17 04:36] LABS: Basophils # (auto) 0.01 K/uL (0-0.2); Basophils % (auto) 0.2 %; Hematocrit (blood only) 40.3 % (40.1-51.0); Hemoglobin 13.6 g/dl (14.0-18.0); Immature Granulocytes # (auto) 0.04 K/uL (0.00-0.02); Immature Granulocytes % (auto) 0.6 %; Lymphocytes # (auto) 0.61 K/uL (1.2-3.4); Lymphocytes % (auto) 9.5 %; Mean Corpuscular Hemoglobin 31.6 pg (25.0-34.0); Mean Corpuscular Hgb Conc 33.7 g/dL (32.0-36.0); Mean Corpuscular Volume 93.7 fL (80.0-100.0); Mean Platelet Volume 10.1 fL (9.4-12.4); Monocytes # (auto) 0.15 K/uL (0.24-0.82); Monocytes % (auto) 2.3 %; Neutrophils # (auto) 5.64 K/uL (1.4-6.5); Neutrophils % (auto) 87.4 %; Platelet Count 168 K/uL (130-400); RDW Coefficient of Variation 14.3 % (11.5-14.5); RDW Standard Deviation 48.9 fL (36.4-46.3); White Blood Count 6.45 K/ul (4.8-10.8)
[2022-01-17 04:55] LABS: INR 3.7 (0.9-1.1); Prothrombin Time 36.7 Seconds (9.0-12.0)
[2022-01-17 05:06] LABS: Albumin Globulin Ratio 1.8 (0.9-2); Albumin Level 3.5 gm/dl (3.4-5.0); Bilirubin,Total 0.9 mg/dl (0.2-1.0); Calcium 8.4 mg/dl (8.5-10.1); Creatinine Clr Calc Pharmacy 68.7 ml/min; Est GFR (African American) 79.2 ml/min; Est GFR (Non-African American) 68.3 ml/min; Magnesium 1.8 mg/dl (1.7-2.4); Total Protein 5.5 gm/dl (6.0-8.3)
[2022-01-17] MEDS ORDERED: methylPREDNISolone 40 MG in SYRINGE 0 ML IV SCH (07:00)
[2022-01-17 07:08] LABS: Estimated Average Glucose 134 mg/dl; Hemoglobin A1C 6.3 % (4.5-5.6)
--- NOTE | 2022-01-17 07:44 | Critical Care Progress Note ---
Date of Service January 17, 2022 Assessment & Plan (1) Chronic HFrEF (heart failure with reduced ejection fraction): (2) CAD (coronary artery disease): (3) Anaphylaxis: (4) Permanent atrial fibrillation: Plan Reason Critically Ill: 86-year-old male with past medical history of CHF s/p AICD, coronary artery disease s/p CABG, A. fib on warfarin, CKD stage III presented to the hospital s/p bee sting. Was found to be hypotensive. Did get epinephrine x3 IM in the ER still hypotensive and thus was started on epinephrine drip. Patient sent to the ICU for further management Chest x-ray 01/16/2022 personally reviewed: Portable film, good inspiratory effort, bilateral costophrenic and cardiophrenic angles are clean, AICD in place, no clear lung infiltrate appreciated Neuro - [facility] ICU: Negative Cardiac - -- S/p shock Anaphylaxis s/p bee sting Did get epinephrine IM x3 in the ER Epi drip was stopped around 6:30 PM on 01/16/2022 --Systolic plus diastolic CHF s/p AICD Continue with home blood pressure medication 2D echo 05/27/2021: EF 25-30%, grade 3 diastolic dysfunction, moderate MR, moderate TR severe biatrial enlargement Respiratory - --Mild angioedema --> resolved Maintaining oral airway with no secretions Continue to monitor GI - No issues RENAL/LYTES - -- PARK on CKD --> improving Continue to monitor BUNs/creatinine Avoid nephrotoxic medication - No issues ENDO - ICU hypoglycemia protocol HEME - --Supratherapeutic INR Hold anticoagulation Monitor H&H ID - No signs of infection --Prophylaxis VTE: IPC, on warfarin at home GI: Pantoprazole Lines: Peripheral Diet: Cardiorenal Plan: In/out: +885, urine output 1000 mL Hypomagnesemia is being replaced Continue with Pepcid Will discontinue Benadryl as well as Solu-Medrol standing dose. Patient is hemodynamically stable. Okay to be downgraded out of the ICU. Case was discussed with Please note the above document was generated using voice recognition software. It may contain grammatical, syntax or spelling errors.Any formal questions or concerns about the content, text or information contained within the body of this dictation should be directly addressed to the provider for clarification. Admission and Anticipated Discharge Date Admission Date: January 16, 2022 Subjective Patient seen and examined at bedside. No acute distress, no adverse events overnight. No chest pain, no shortness of breath, no headache Fair appetite. No difficulties swallowing. No nausea or vomiting Review of Systems Review of Systems: All systems reviewed & are unremarkable except as noted in Subjective Physical Exam Physical Exam: Constitutional: No acute distress HEENT: EOMI, PERRLA Respiratory system: Good air entry bilaterally, no wheeze, no rhonchi, mild crackles left lower lobe CVS: S1-S2 positive, no murmurs or gallops, left-sided AICD, accentuated P2 Abdomen: Soft, nontender, nondistended, positive bowel sounds x4 Extremities: +2 pulses bilaterally radialis/ dorsalis pedis, no cyanosis, +1 pitting edema bilateral lower extremity Neuro: Awake alert oriented x3 Psych: Normal mood and affect G/U: No Lange Skin: no rashes, warm and dry Lymphatic: no cervical or axillary lymphadenopathy Results & Data Results & Data ([facility]) Vital Signs (Past 12 Hours) Vital Signs Temp Pulse Resp BP Pulse Ox O2 Del Method 01/17/22 06:00 79 14 111/69 90 01/17/22 05:00 78 16 94 01/17/22 05:00 112/65 01/17/22 04:00 76 16 106/59 L 92 01/17/22 04:30 36.7 C 01/17/22 03:00 74 15 105/60 92 01/17/22 02:00 84 25 H 108/64 95 01/17/22 01:16 79 20 108/61 92 01/17/22 01:01 82 16 93 01/17/22 01:01 88/58 L 01/17/22 01:00 79 14 99/50 L 92 01/17/22 00:00 79 19 112/73 91 01/16/22 23:00 87 18 116/67 93 01/16/22 23:55 79 01/16/22 22:00 85 25 H 96 01/16/22 22:00 138/89 01/16/22 21:00 82 26 H 137/80 94 Room Air 01/16/22 20:00 91 H 20 145/95 H 94 01/16/22 22:00 36.5 C 01/16/22 21:41 81 Laboratory Results 01/17/22 04:01 01/17/22 04:01 Coding Level of Care Code 06991 Subseq Hosp Care Lvl 2 Diagnoses Chronic HFrEF (heart failure with reduced ejection fraction) I50.22 CAD (coronary artery disease) I25.10 Anaphylaxis T78.2XXA Encounter type: initial encounter Permanent atrial fibrillation I48.21 (1) Anaphylaxis Encounter type: initial encounter Qualified Code(s): T78.2XXA - Anaphylactic shock, unspecified, initial encounter
[2022-01-17] MEDS: MULTIVITAMIN TAB PO SCH (08:08)
[2022-01-17] MEDS: diphenhydrAMINE 50 MG/ML VIAL IV SCH (08:08)
[2022-01-17] MEDS: VALSARTAN/SACUBITRIL 103/97MG TAB PO SCH ×2 (08:08→21:01)
[2022-01-17] MEDS: FAMOTIDINE 20 MG in SYRINGE 3 ML IV SCH (08:08)
[2022-01-17] MEDS: METOPROLOL SUCC 50MG EXT REL TAB PO SCH ×2 (08:09→21:00)
[2022-01-17] MEDS: ATORVASTATIN 40 MG TAB PO SCH (08:09)
[2022-01-17] MEDS: allopurinoL 100 MG TAB PO SCH (08:09)
[2022-01-17] MEDS: EZETIMIBE 10 MG TABLET PO SCH (08:09)
[2022-01-17] MEDS: MAGNESIUM SULFATE / D5W 1 GM/100 ML BAG IV SCH ×2 (08:55→10:36)
[2022-01-17] MEDS: SODIUM CHLORIDE 0.9% 250 ML IV SCH ×2 (10:36→13:04)
--- NOTE | 2022-01-17 17:34 | Hospitalist Progress Note ---
Date of Service January 17, 2022 Assessment & Plan (1) Anaphylaxis: (2) Urticaria: (3) CAD (coronary artery disease): (4) Chronic HFrEF (heart failure with reduced ejection fraction): (5) Ischemic cardiomyopathy: (6) Permanent atrial fibrillation: Plan Patient is an 86 yr male with H/O Chronic HFrEF EF 35%, status post pacemaker and defibrillator, CAD with history of angioplasty and CABG x2, permanent atrial fibrillation anticoagulated on warfarin, HTN, HLD, LBBB and CKD stage III who presents to ER after being stung by bee and having anaphylactic reaction. 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 01/13/22 revealed EF 35%, mildly diffuse left ventricular hypokinesis, right ventricle moderately dilated with preserved right ventricular systolic function, AV sclerosis, mild MR, mild TR S/P Pacer/Defibrillator continue atorvastatin, Entresto, metoprolol, digoxin Resume lasix as able Monitor volume status Chronic A-fib Supratherapeutic INR continue metoprolol, digoxin INR 3.7 Hold Warfarin Hypokalemia Replete electrolytes as needed PARK on CKD III Held diuretics Received IV fluids Monitor renal function Avoid nephrotoxic agents as able DVT Px: Held warfarin Supratherapeutic INR Code Status FULL CODE Admission and Anticipated Discharge Date Admission Date: January 16, 2022 Subjective Patient is seen and examined at bedside Facial swelling resolved Denies any dysphagia, dyspnea Rash resolved as well Offers no complaints this morning Discussed with forest fire officer Review of Systems Review of Systems: All systems reviewed & are unremarkable except as noted in Subjective Physical Exam Physical Exam: Physical Exam: Vitals signs as noted above General Appearance:Moderately built and nourished, no apparent distress Head: normocephalic, Atraumatic Eyes: normal inspection, EOMI Neck: supple, Trachea midline Respiratory/Chest: Normal breath sounds, CTA, +Pacer, No accessory muscle use Cardiovascular: S1, S2, No murmur Abdomen/GI:Soft, Non tender, Bowel sounds present Extremities/Musculoskeletal:normal inspection, + Pedal edema Neurologic/Psych:AAOX3, grossly no focal neurological deficits Skin: normal color, warm Results & Data Results & Data ([facility]) Vital Signs (Past 12 Hours) Vital Signs Temp Pulse Resp BP Pulse Ox 01/17/22 16:00 83 17 96 01/17/22 16:00 120/78 01/17/22 15:30 105/64 01/17/22 15:30 74 17 91 01/17/22 15:00 78 20 94 01/17/22 15:00 114/63 01/17/22 14:30 114/75 01/17/22 14:30 79 23 92 01/17/22 14:00 75 19 93 01/17/22 14:00 108/69 01/17/22 13:30 71 17 87 L 01/17/22 13:30 105/59 L 01/17/22 13:00 74 18 94 01/17/22 13:00 118/69 01/17/22 12:30 126/81 01/17/22 12:30 79 19 94 01/17/22 12:00 85 22 94 01/17/22 12:00 132/89 01/17/22 16:00 74 01/17/22 16:00 36.5 C 01/17/22 11:53 37 C 01/17/22 11:30 124/68 01/17/22 11:30 77 22 94 01/17/22 11:00 79 21 94 01/17/22 11:00 118/74 01/17/22 10:57 112/72 01/17/22 10:57 88 19 94 01/17/22 10:30 76 19 93 01/17/22 10:30 94/75 L 01/17/22 10:03 76 17 90 01/17/22 10:03 98/66 L 01/17/22 10:02 62/37 L 01/17/22 10:02 75 17 88 L 01/17/22 10:01 74 17 88 L 01/17/22 10:01 67/35 L 01/17/22 10:00 74 21 90 01/17/22 09:15 106/71 01/17/22 09:01 112/64 01/17/22 08:59 78 26 H 01/17/22 08:42 95/57 L 01/17/22 08:42 79 15 93 01/17/22 08:01 113/76 01/17/22 08:01 85 17 93 01/17/22 08:00 84 18 93 01/17/22 07:05 123/70 01/17/22 07:05 88 14 94 01/17/22 07:00 76 14 91 01/17/22 06:00 79 14 111/69 90 Laboratory Results Short CBC 01/17/22 Range/Units 04:01 WBC 6.45 (4.8-10.8) K/ul Hgb 13.6 L (14.0-18.0) g/dl Hct 40.3 (40.1-51.0) % Plt Count 168 (130-400) K/uL BMP 01/17/22 04:01 Sodium 138 Potassium 4.0 D Chloride 108 H Carbon Dioxide 22 BUN 26 H Creatinine 1.00 D Glucose 156 H Calcium 8.4 L Liver Function 01/17/22 Range/Units 04:01 Total Bilirubin 0.9 (0.2-1.0) mg/dl AST 16 (13-39) U/L ALT 13 (7-52) U/L Alkaline Phosphatase 37 (34-104) U/L Albumin 3.5 (3.4-5.0) gm/dl (1) Anaphylaxis Encounter type: initial encounter Qualified Code(s): T78.2XXA - Anaphylactic shock, unspecified, initial encounter
[2022-01-17] MEDS: CETIRIZINE HCL 10 MG TABLET PO SCH (18:39)
[2022-01-17] MEDS: DIGOXIN 0.125 MG TAB PO SCH (21:01)
[2022-01-17] MEDS: FAMOTIDINE 20 MG TAB PO SCH (21:01)
[2022-01-17] MEDS: methylPREDNISolone 40 MG in SYRINGE 0 ML IV SCH (21:02)
[2022-01-18 06:05] LABS: Hematocrit (blood only) 40.5 % (40.1-51.0); Hemoglobin 13.7 g/dl (14.0-18.0); Mean Corpuscular Hemoglobin 31.5 pg (25.0-34.0); Mean Corpuscular Hgb Conc 33.8 g/dL (32.0-36.0); Mean Corpuscular Volume 93.1 fL (80.0-100.0); Mean Platelet Volume 10.1 fL (9.4-12.4); Platelet Count 185 K/uL (130-400); RDW Coefficient of Variation 14.4 % (11.5-14.5); RDW Standard Deviation 50.1 fL (36.4-46.3); Red Blood Count 4.35 M/uL (4.63-6.08); White Blood Count 14.04 K/ul (4.8-10.8)
[2022-01-18 06:33] LABS: INR 4.1 (0.9-1.1); Prothrombin Time 40.4 Seconds (9.0-12.0)
[2022-01-18 06:41] LABS: Basophils # (auto) 0.01 K/uL (0-0.2); Basophils % (auto) 0.1 %; Echinocytes 1+; Immature Granulocytes # (auto) 0.07 K/uL (0.00-0.02); Immature Granulocytes % (auto) 0.5 %; Lymphocytes # (auto) 0.76 K/uL (1.2-3.4); Lymphocytes % (auto) 5.4 %; Monocytes # (auto) 0.42 K/uL (0.24-0.82); Neutrophils # (auto) 12.78 K/uL (1.4-6.5); Ovalocytes 1+; Polychromasia 1+
[2022-01-18 07:08] LABS: Albumin Globulin Ratio 2.4 (0.9-2); Albumin Level 3.8 gm/dl (3.4-5.0); BUN Creatinine Ratio 23.3 (10-20); Bilirubin,Total 0.7 mg/dl (0.2-1.0); Calcium 8.3 mg/dl (8.5-10.1); Creatinine Clr Calc Pharmacy 67.6 ml/min; Est GFR (African American) 76.4 ml/min; Est GFR (Non-African American) 65.9 ml/min; Globulin 1.6 gm/dl (2.5-4.0); Magnesium 2.2 mg/dl (1.7-2.4); Potassium 4.3 mmol/L (3.5-5.1); Total Protein 5.4 gm/dl (6.0-8.3)
[2022-01-18] MEDS: allopurinoL 100 MG TAB PO SCH (07:56)
[2022-01-18] MEDS: METOPROLOL SUCC 50MG EXT REL TAB PO SCH (07:56)
[2022-01-18] MEDS: EZETIMIBE 10 MG TABLET PO SCH (07:57)
[2022-01-18] MEDS: ATORVASTATIN 40 MG TAB PO SCH (07:57)
[2022-01-18] MEDS: FAMOTIDINE 20 MG TAB PO SCH (07:57)
[2022-01-18] MEDS: CETIRIZINE HCL 10 MG TABLET PO SCH (07:57)
[2022-01-18] MEDS: MULTIVITAMIN TAB PO SCH (07:57)
[2022-01-18] MEDS: VALSARTAN/SACUBITRIL 103/97MG TAB PO SCH (08:58)
[2022-01-18] MEDS: methylPREDNISolone 40 MG in SYRINGE 0 ML IV SCH (08:58)
--- NOTE | 2022-01-18 13:10 | Hospitalist Progress Note ---
Date of Service January 18, 2022 Assessment & Plan (1) Anaphylaxis: (2) Urticaria: (3) CAD (coronary artery disease): (4) Chronic HFrEF (heart failure with reduced ejection fraction): (5) Ischemic cardiomyopathy: (6) Permanent atrial fibrillation: Plan Patient is an 86 yr male with H/O Chronic HFrEF EF 35%, status post pacemaker and defibrillator, CAD with history of angioplasty and CABG x2, permanent atrial fibrillation anticoagulated on warfarin, HTN, HLD, LBBB and CKD stage III who presents to ER after being stung by bee and having anaphylactic reaction. Anaphylactic shock-POA Secondary to bee sting Angioedema Epinephrine drip discontinued Received Pepcid, IV Solu-Medrol, antihistamine, Benadryl PRN Monitor for hemodynamic changes Needs EpiPen upon discharge Clinically improved CAD Chronic HFref Ischemic [employer] MA[employer]ER ECHO 01/13/22 revealed EF 35%, mildly diffuse left ventricular hypokinesis, right ventricle moderately dilated with preserved right ventricular systolic function, AV sclerosis, mild MR, mild TR S/P Pacer/Defibrillator continue atorvastatin, Entresto, metoprolol, digoxin Resume Lasix Monitor volume status Chronic A-fib Supratherapeutic INR continue metoprolol, digoxin INR 3.7> 4.1 Hold Warfarin Advised to continue to hold her Coumadin today and tomorrow Advised to follow-up with Coumadin clinic on Thursday for further recommendations. Hypokalemia Replete electrolytes as needed PARK on CKD III Held diuretics Received IV fluids Monitor renal function Avoid nephrotoxic agents as able Resolved DVT Px: Held warfarin Supratherapeutic INR Code Status FULL CODE Disposition Home Admission and Anticipated Discharge Date Admission Date: January 16, 2022 Subjective Patient is seen and examined at bedside States feeling well today No new complaints Denies recurrence of facial swelling, rash Also denies chest pain, dyspnea, dizziness, nausea, abdominal pain, dysphagia Plan to be discharged home today Review of Systems Review of Systems: All systems reviewed & are unremarkable except as noted in Subjective Physical Exam Physical Exam: Physical Exam: Vitals signs as noted above General Appearance:Moderately built and nourished, no apparent distress Head: normocephalic, Atraumatic Eyes: normal inspection, EOMI Neck: supple, Trachea midline Respiratory/Chest: Normal breath sounds, CTA, +Pacer, No accessory muscle use Cardiovascular: S1, S2, No murmur Abdomen/GI:Soft, Non tender, Bowel sounds present Extremities/Musculoskeletal:normal inspection, + Pedal edema Neurologic/Psych:AAOX3, grossly no focal neurological deficits Skin: normal color, warm Results & Data Results & Data ([facility]) Vital Signs (Past 12 Hours) Vital Signs Temp Pulse Resp BP Pulse Ox O2 Del Method 01/18/22 10:55 36.6 C 76 19 121/73 95 Room Air 01/18/22 07:39 36.6 C 81 19 117/74 94 Room Air 01/18/22 04:00 36.6 C 77 20 113/65 97 Room Air Laboratory Results Short CBC 01/18/22 Range/Units 05:50 WBC 14.04 H (4.8-10.8) K/ul Hgb 13.7 L (14.0-18.0) g/dl Hct 40.5 (40.1-51.0) % Plt Count 185 (130-400) K/uL BMP 01/18/22 05:50 Sodium 138 Potassium 4.3 Chloride 108 H Carbon Dioxide 26 BUN 24 H Creatinine 1.03 Glucose 147 H Calcium 8.3 L Liver Function 01/18/22 Range/Units 05:50 Total Bilirubin 0.7 (0.2-1.0) mg/dl AST 18 (13-39) U/L ALT 14 (7-52) U/L Alkaline Phosphatase 38 (34-104) U/L Albumin 3.8 (3.4-5.0) gm/dl (1) Anaphylaxis Encounter type: initial encounter Qualified Code(s): T78.2XXA - Anaphylactic shock, unspecified, initial encounter
--- NOTE | 2022-01-18 13:20 | Discharge Summary ---
Date of Service January 18, 2022 Admission HPI Per Admitting Provider This is an 86-year-old male who has a significant past medical history of chronic HFrEF EF 35%, status post pacemaker and defibrillator, CAD with history of angioplasty and CABG x2, permanent atrial fibrillation anticoagulated on warfarin, HTN, HLD, LBBB and CKD stage III who presents to ER after being stung by bee and having anaphylactic reaction. He denies ever having anaphylactic reaction in the past. He states around noon he was stung by a bee on his right fourth finger. He then started noticing swelling of his hand and he could feel the, "then I am going up his arm." He also noted a rash to his abdomen and tongue swelling. He presented to [facility]. He was hypotensive there with a blood pressure of 82/62. EMS was summoned due to concern for anaphylactic shock. Patient did receive 125 mg of Solu-Medrol, 50 mg of Benadryl, 0.3 mg of IM epinephrine as well as albuterol. He was transported to ED. In ED he continued to have angioedema, tongue swelling and rash. He was then administered an additional 0.3 mg IM epinephrine, IV fluid and was eventually placed on epi drip. After being placed on epi drip his symptoms did start to improve. Currently he continues to have lip and tongue swelling. He otherwise denies any fever, chills, sweats, lightheadedness, dizziness, chest pain, shortness breath, cough, nausea, vomiting, abdominal pain, change in bowel or urinary habits. He has been compliant with his medications. Admission Exam Per Admitting Provider Physical Exam Physical Exam: Constitutional: WD/WN, [place], M, vitals as above, NAD, sitting up in bed, pleasant, conversing easily Head: Normocephalic, Atraumatic Eyes: PERRL, conjunctivae normal, anicteric sclerae ENMT: external ear and nose normal, +angioedema, tongue swelling, no drooling Neck: trachea midline, no thyromegaly normal visual inspection Respiratory: normal respiratory effort, lungs clear to auscultation, no wheeze, rales, rhonchi. Normal insp/exp effort, no accessory muscle use Cardiovascular: IRR/IRR, no murmur, no edema Vessels: no JVD or carotid bruit Chest: normal inspection of chest Abdomen: normal bowel sounds, soft, nontender, no hepatosplenomegaly Musculoskeletal: no cyanosis or clubbing, extremities motor strength 5/5 Skin: no rashes, warm and dry normal turgor Neurologic: PERRL, EOMI, accommodation nl, no face palsy, no dysarthria CN's II-XI intact bilaterally and moves all extremities Psychiatric: A+Ox3, euthymic affect Lymphatic: no cervical or axillary lymphadenopathy : deferred Principal Diagnosis Anaphylactic shock Angioedema Supratherapeutic INR Acute kidney injury Hypokalemia Discharge Data Allergies Allergy/AdvReac Type Severity Reaction Status Date / Time bee venom protein (honey bee) Allergy Severe Anaphylaxis Verified 01/16/22 15:36 Consultations 01/16/22 14:55 ED Decision to Admit Stat 01/16/22 16:01 Consult Pad Cutter Routine Procedures Performed Laboratory Results WBC 14.04 K/ul (4.8-10.8) H 01/18/22 05:50 RBC 4.35 M/uL (4.63-6.08) L 01/18/22 05:50 Hgb 13.7 g/dl (14.0-18.0) L 01/18/22 05:50 Hct 40.5 % (40.1-51.0) 01/18/22 05:50 MCV 93.1 fL (80.0-100.0) 01/18/22 05:50 MCH 31.5 pg (25.0-34.0) 01/18/22 05:50 MCHC 33.8 g/dL (32.0-36.0) 01/18/22 05:50 RDW Std Deviation 50.1 fL (36.4-46.3) H 01/18/22 05:50 RDW Coeff of Everardo 14.4 % (11.5-14.5) 01/18/22 05:50 Plt Count 185 K/uL (130-400) 01/18/22 05:50 MPV 10.1 fL (9.4-12.4) 01/18/22 05:50 Immature Gran % (Auto) 0.5 % 01/18/22 05:50 Neut % (Auto) 91.0 % 01/18/22 05:50 Lymph % (Auto) 5.4 % 01/18/22 05:50 [place] % (Auto) 3.0 % 01/18/22 05:50 Eos % (Auto) 0.0 % 01/18/22 05:50 Baso % (Auto) 0.1 % 01/18/22 05:50 Neut # (Auto) 12.78 K/uL (1.4-6.5) H 01/18/22 05:50 Lymph # (Auto) 0.76 K/uL (1.2-3.4) L 01/18/22 05:50 [place] # (Auto) 0.42 K/uL (0.24-0.82) 01/18/22 05:50 Eos # (Auto) 0.00 K/uL (0-0.50) 01/18/22 05:50 Baso # (Auto) 0.01 K/uL (0-0.2) 01/18/22 05:50 Immature Gran # (Auto) 0.07 K/uL (0.00-0.02) H 01/18/22 05:50 Polychromasia 1+ 01/18/22 05:50 Ovalocytes 1+ 01/18/22 05:50 Echinocytes 1+ 01/18/22 05:50 PT 40.4 Seconds (9.0-12.0) H 01/18/22 05:50 INR 4.1 (0.9-1.1) H 01/18/22 05:50 APTT 36.4 Seconds (21.0-31.0) H 01/16/22 14:03 PTT Ratio 1.3 01/16/22 14:03 Sodium 138 mmol/L (136-145) 01/18/22 05:50 Potassium 4.3 mmol/L (3.5-5.1) 01/18/22 05:50 Chloride 108 mmol/L (98-107) H 01/18/22 05:50 Carbon Dioxide 26 mmol/L (21-32) 01/18/22 05:50 Anion Gap 4 (3-11) 01/18/22 05:50 BUN 24 mg/dl (6-23) H 01/18/22 05:50 Creatinine 1.03 mg/dl (0.6-1.4) 01/18/22 05:50 Est Cr Clr Drug Dosing 67.6 ml/min 01/18/22 05:50 Est GFR ( Amer) 76.4 ml/min 01/18/22 05:50 Est GFR (Non-Af Amer) 65.9 ml/min 01/18/22 05:50 BUN/Creatinine Ratio 23.3 (10-20) H 01/18/22 05:50 Glucose 147 mg/dl (70-99(Fasting)) H 01/18/22 05:50 Estimat Average Glucose 134 mg/dl 01/17/22 04:01 Hemoglobin A1c 6.3 % (4.5-5.6) H 01/17/22 04:01 Lactate 2.8 mmol/L (0.4-2.0) H* 01/16/22 18:15 Calcium 8.3 mg/dl (8.5-10.1) L 01/18/22 05:50 Phosphorus 2.6 mg/dl (2.5-4.9) 01/16/22 16:32 Magnesium 2.2 mg/dl (1.7-2.4) 01/18/22 05:50 Total Bilirubin 0.7 mg/dl (0.2-1.0) 01/18/22 05:50 AST 18 U/L (13-39) 01/18/22 05:50 ALT 14 U/L (7-52) 01/18/22 05:50 Alkaline Phosphatase 38 U/L (34-104) 01/18/22 05:50 Troponin I High Sens 9.9 pg/ml (0-20) 01/16/22 14:39 Total Protein 5.4 gm/dl (6.0-8.3) L 01/18/22 05:50 Albumin 3.8 gm/dl (3.4-5.0) 01/18/22 05:50 Globulin 1.6 gm/dl (2.5-4.0) L 01/18/22 05:50 Albumin/Globulin Ratio 2.4 (0.9-2) H 01/18/22 05:50 Nasal Screen MRSA (PCR) Negative (Negative) 01/16/22 18:55 Digoxin 0.6 ng/ml (0.8-2.0) L 01/16/22 14:39 SARS-CoV-2, RNA, NAAT NEGATIVE (NEGATIVE) 01/16/22 14:49 Impressions Chest X-Ray 01/16/22 15:55 SINGLE VIEW CHEST CLINICAL HISTORY: Anaphylaxis FINDINGS: An AP, portable, upright chest radiograph is compared to study dated 08/13/2021. The patient is status post midline sternotomy. A 2-lead cardiac AICD is unchanged in position. The heart is enlarged noting atherosclerotic calcification of the thoracic aorta. The pulmonary vasculature is noncongested. Chronic interstitial thickening some of the previous. Scarring/atelectasis is noted at the lung bases PA The lungs and pleural spaces are otherwise clear. No pneumothorax is seen. The skeletal structures are osteopenic. The bony thorax is grossly intact. IMPRESSION: 1. Cardiomegaly and AICD without radiographic evidence of congestive failure. 2. No airspace consolidation or pleural effusion is identified. ACT 112: Negative or not required by law. Electronically signed by: Dewayne Edwards M.D. 01/16/2022 5:22 PM Hospital Course (1) Anaphylaxis: (2) Urticaria: (3) CAD (coronary artery disease): (4) Chronic HFrEF (heart failure with reduced ejection fraction): (5) Ischemic cardiomyopathy: (6) Permanent atrial fibrillation: Plan Patient is an 86 yr male with H/O Chronic HFrEF EF 35%, status post pacemaker and defibrillator, CAD with history of angioplasty and CABG x2, permanent atrial fibrillation anticoagulated on warfarin, HTN, HLD, LBBB and CKD stage III who presents to ER after being stung by bee and having anaphylactic reaction. 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 Hypokalemia Replete electrolytes as needed PARK on CKD III Held diuretics Received IV fluids Monitor renal function Avoid nephrotoxic agents as able Resolved DVT Px: Held warfarin Supratherapeutic INR Code Status FULL CODE Disposition Home Total Time Total Time Spent Total Time Spent (In Minutes): 44 minutes Discharge Plan Discharge Items Patient Disposition: Home - Self-Care Reason For Visit: ANAPHYLAXIS Discharge Diagnosis: Anaphylactic shock Angioedema Supratherapeutic INR Acute kidney injury Hypokalemia Activity: Per Instructions section Exercise/Sports: Gradually increase as tolerated Non-emergency contact: Primary Care Provider Call non-emergency contact if: you have any medication questions, your symptoms worsen, your pain is concerning for you and you have a fever Follow-up/Referrals: Scotty Cummings PA-C [Primary Care Provider] - (Date & Time 01/23/2022 12:20 PM Provider Scotty Cummings PA-C Department General Internal Medicine [facility] ) Diet: Heart Healthy Addtl Attending Provider Instructions: Follow-up with your primary care physician Scotty Cummings on 01/23/2022 12:20 PM Follow-up with Coumadin clinic on 01/20/2022 for further instructions on Coumadin dosing and monitoring your PT/INR as advised. --DO NOT take Coumadin today and tomorrow (01/18/2022 and 01/19/2022) as your INR is above the normal target range. --- Get blood test: PT/INR on 01/20/2022 and follow-up with Coumadin clinic for further instructions. -- Complete the Medrol Dosepak taper course as prescribed. Start taking from 01/19/2022 -- Use EpiPen for severe allergic reaction as directed. Tongue/throat/facial swelling, severe rash, shortness of breath etc. please call 911 immediately for further assistance. Please carry EpiPen always with you and check for exp iration date before use. Seek immediate medical attention if your symptoms reoccur or worsen Please take all medications as instructed on discharge list below. Please call if you have any questions or problems. You can reach a [facility] hospitalist on duty at [facility] 24 hours a day by calling [phone] Pending Studies at Discharge: No Stand-Alone Forms: My [facility] [employer], Smoking Cessation Medications and DC Order Prescriptions: New epinephrine [EpiPen 2-Lul] 0.3 mg/0.3 mL auto-injector 0.3 mg IM UD PRN (Reason: anaphylaxis) Qty: 2 1RF Rx Instructions: Use as directed for anaphylaxis/Severe allergic reaction. cetirizine 10 mg Tablet 10 mg PO QAM Qty: 5 0RF famotidine 20 mg Tablet 20 mg PO BID Qty: 14 0RF methylprednisolone [Medrol (Lul)] 4 mg tablets,dose pack 4 mg PO UD Qty: 21 0RF Rx Instructions: Start taking from 01/19/22 Continued warfarin 5 mg tablet 5 mg PO SUMOTUWETHSA@1600 digoxin [Digitek] 125 mcg (0.125 mg) tablet 62.5 mcg PO QPM furosemide [Lasix] 40 mg Tablet 40 mg PO QAM atorvastatin 80 mg Tablet 80 mg PO QAM allopurinol 100 mg Tablet 100 mg PO QAM warfarin 5 mg Tablet 2.5 mg PO FR@1600 eplerenone [Inspra] 25 mg Tablet 12.5 mg PO QAM ezetimibe 10 mg Tablet 10 mg PO QAM PreserVision AREDS [id number] Capsule 1 cap PO QAM Entresto 97-103 mg Tablet 1 tab PO BID metoprolol succinate [Toprol XL] 50 mg Tablet Extended Release 24 Hr 100 mg PO BID Qty: 0 0RF Discharge Orders: Discharge Order (Routine); Ordered 01/18/22 Ordered By: Matteo Bang/Other Patient Handouts: A1C Admission Data Admit Date/Time: 01/16/22 15:47 Attending Provider: Matteo Gordon Admit Provider: Erna White Primary Care Provider: Scotty Cummings Other Providers: Erna White ; Karime Loyd
--- NOTE | 2022-01-18 16:40 | Electrocardiogram Report ---
Test Reason : Blood Pressure : / mmHG Vent. Rate : 076 BPM Atrial Rate : 073 BPM P-R Int : 000 ms QRS Dur : 118 ms QT Int : 392 ms P-R-T Axes : 000 -38 084 degrees QTc Int : 441 ms Ventricular-paced rhythm with fusion Underlying atrial fibrillation Abnormal ECG When compared with ECG of 16-JAN-2022 14:38, Vent. rate has decreased BY 19 BPM Confirmed by Leonardo Mars ([id number]) on 01/18/2022 4:39:36 PM Referred By: REFERRED SELF Confirmed By:Leonardo Mars
[2022-01-19] MEDS ORDERED: methylPREDNISolone 40 MG in SYRINGE 0 ML IV SCH (09:00)
== END 2022-01-18 14:34 | disposition home or self-care (01) | DRG 916 ==
LOC: ED 13:26 → SUATTDRO 15:47 → 1E 15:47 → 2S 01-17 17:35